=== PATIENT | female | born 1995 | race Caucasian/White ===

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

== ENCOUNTER 2017-01-27 19:04 | Outpatient (CLI) | payer OTHER ==
[2017-01-27 20:30] VITALS: BP 127/73; PULSE 110; RESP 16; TEMP 96.3
--- NOTE | 2017-04-06 08:44 | P.MSEPDOC ---
Presenting Problems - Arrival Data Date of Arrival on Unit: 01/27/17 Time of Arrival on Unit: 19:04 Mode of Transport: Ambulatory - Complaint OB-Reason for Admission/Chief Complaint: Pain Comment: Pt c/o back pain. Rating 7/10. Medical History - Information : 1 Para: 0 Term: 0 : 0 Abortions: Spontaneous or Elective: 0 Number of Living Children: 0 - Gestational Age Gestational Age by SUSAN (wks/days): 36 Weeks and 4 Days - History Complications: Smoker Comment: Pt reports smoking 1 every other day. Review of Systems - Review of Systems Constitutional: No problems Breast: No problems ENT: No problems Cardiovascular: No problems Respiratory: No problems Gastrointestinal: No problems Genitourinary: No problems Musculoskeletal: No problems Neurological: No problems Skin: No problems Vital Signs - Temperature Temperature: 96.3 F Temperature Source: Temporal Artery Scan - Pulse Right Pulse Rate: 110 Pulse Assessment Method: Pulse Oximetry - Respirations Respiratory Rate: 16 Oxygen Delivery Method: Room Air O2 Sat by Pulse Oximetry: 99 - Blood Pressure Right Arm Blood Pressure: 127/73 Blood Pressure Mean: 91 Blood Pressure Source: Automatic Cuff Medical Screen Scoring (Pre) - Cervical Exam Dilation: 1-3 cm = 1 Effacement: Exam Deferred Membranes: Intact - Uterine Contractions Frequency: N/A Duration: N/A Intensity: N/A - Maternal Vital Signs Maternal Temperature: N/A Maternal Blood Pressure: N/A Signs of Preeclampsia: N/A Maternal Respirations: N/A - Maternal Trauma Maternal Trauma: N/A - Assessment Baseline FHR: 135 Heart Rate - NICHD Category: Category I (Normal) = 0 NST: Reactive Position: N/A Station: N/A - Total Score Total Score (Pre): 1 - Level of Risk Level of Risk: Low (0-5) Physician Notification (Pre) - Physician Notified Physician Notified Date: 01/27/17 Physician Notified Time: 19:44 Physician/Practitioner Notifed:: Dr. Ackerman Spoke With: Dr. Ackerman New Order Received: Yes - Notification Comment Comment: Dr. Ackerman notified of pt of Dr. Lopez presenting with c/o back pain , rating 7/10. Cervical exam. NST-reactive. Pt denies complications with , no leaking or bleeding noted. VS stable. Orders to discharge pt home and to follow up with Dr. Lopez in office or [facility] if condition worsens. Disposition - Disposition OB Disposition: Discharge to home Discharge Date: 01/27/17 Discharge Time: 19:44 I agree with the RN Medical Screening Exam: Yes Risk & Benefit of care provided described in d/c instruction: Yes Diagnosis: FALSE LABOR BEFORE 37 COMPLETED WEEKS OF GEST, THIRD TRI
== END 2017-01-27 19:47 | disposition home or self-care (01) ==
LOC: FBPOP 19:04
PROVIDERS: ATTEND Obstetrics & Gynecology
DX: O47.03 False labor before 37 completed weeks of gestation, third trimester (principal); Z3A.36 36 weeks gestation of pregnancy
CPT/HCPCS: 59025; G0463; 99213

== ENCOUNTER → 2017-02-04 | Outpatient (CLI) | payer OTHER ==
--- NOTE | 2017-02-04 15:46 | US ---
EXAMINATION TYPE: US OB >= 14 wk fetus DATE OF EXAM: 02/04/2017 COMPARISON: 11/2016 CLINICAL HISTORY: Z34.90 Encounter for supervision of normal TECHNIQUE: Transabdominal (TA) GESTATIONAL AGE / DATING Physician Established: (37 weeks/4 days) EDC: 02/21/2017 Dates by LMP: (37 weeks/4 days) EDC: 02/21/2017 Dates by First Scan: (37 weeks/3 days) EDC: 02/20/2017 Dates by Current Scan: (36 weeks/1 days) EDC: 03/03/2017 SURVEY IUP: Single PLACENTA: Anterior PREVIA: No Previa GUILLERMO: 17.1 cm Normal CERVICAL LENGTH (transabdominal: norm > 3.0cm): 3.5 cm BIOMETRY PRESENTATION: Vertex LIE: Longitudinal BPD: 8.9 cm 36 weeks / 2 days HC: 32.1 cm 36 weeks / 1 days AC: 33 cm 36 weeks / 5days FL: 6.9 cm 35 weeks / 3 days ESTIMATED WEIGHT IN GRAMS: 2885 grams ESTIMATED WEIGHT IN LBS/OZS: 6 lbs. 6 oz. WEIGHT PERCENTAGE BASED ON ESTABLISHED DATES: 26 % HC/AC: 0.98 Normal FL/AC: 21 Normal HEART RATE: 153 bpm RHYTHM: Normal IMPRESSION: Single live intrauterine with a sonographic age of 36 weeks and 1 day and estimated date of delivery of 03/03/2017. Dates are concordant with the menstrual age.
== END | disposition home or self-care (01) ==
LOC: RADUSWWP 14:36
PROVIDERS: ATTEND Obstetrics & Gynecology
DX: Z34.90 Encounter for supervision of normal pregnancy, unspecified, unspecified trimester (principal); Z3A.36 36 weeks gestation of pregnancy
CPT/HCPCS: 76805

== ENCOUNTER 2018-02-20 19:52 | Emergency (ER) | payer OTHER ==
[2018-02-20 20:04] VITALS: RESP 18; TEMP 98.6
[2018-02-20] MEDS ORDERED: SODIUM CHLORIDE 0.9% 1,000 ML IV ONE (20:19)
[2018-02-20] MEDS ORDERED: SODIUM CHLORIDE 0.9% 500 ML IV ONE (20:19)
--- NOTE | 2018-02-20 20:30 | ED ---
General Adult HPI - General Source: patient, family, RN notes reviewed, old records reviewed Mode of arrival: ambulatory Limitations: no limitations <Collin Rodríguez - Last Filed: 02/20/18 20:59> <Tequila Reynoso - Last Filed: 02/21/18 00:23> <Macie Rubi - Last Filed: 02/21/18 00:50> - General Chief complaint: Vaginal Bleeding Stated complaint: 6 weeks , spotting - History of Present Illness Initial comments: Chief complaint history of present illness a 22-year-old female whose approximate 6 weeks . She found this out last week when she came emergency room because of lower abdominal discomfort and diagnosed urinary tract infection. At that time she had an ultrasound done which showed a single viable early intrauterine of 6 weeks 1 day, heart rate of 87 bpm , with a small amount of free fluid seen in the pelvis. On the same day her beta was 16,111 She continued to have discomfort in the lower abdomen during this past week. Today she had small clots passed per vagina. (Collin Rodríguez) - Related Data Previous Rx's Medication Instructions Recorded Cephalexin [Keflex] 500 mg PO Q12H 10 Days cap 02/15/18 Pnv No.95/Ferrous Fum/Folic AC 1 each PO DAILY #90 tablet 02/15/18 [ Multivitamin Tablet] Allergies Allergy/AdvReac Type Severity Reaction Status Date / Time strawberry AdvReac Itching Verified 02/20/18 20:04 Review of Systems ROS Other: All systems not noted in ROS Statement are negative. <Collin Rodríguez - Last Filed: 02/20/18 20:59> ROS Other: All systems not noted in ROS Statement are negative. <Tequila Reynoso - Last Filed: 02/21/18 00:23> ROS Other: All systems not noted in ROS Statement are negative. <Macie Rubi - Last Filed: 02/21/18 00:50> ROS Statement: Those systems with pertinent positive or pertinent negative responses have been documented in the HPI. Review of systems no headache or chest pain or shortness of breath. She has lower abdominal discomfort, cramping. She reports small blood clots per vagina. No nausea no vomiting no diarrhea. All systems are reviewed. Past medical problems none. Gynecological history, 2 para 1. Patient denies any surgeries. in the family. Patient has ALLERGIES to strawberries. She does smoke strongly encouraged to stop denies alcohol use. (Collin Rodríguez) Past Medical History Past Medical History: No Reported History History of Any Multi-Drug Resistant Organisms: None Reported Past Surgical History: No Surgical Hx Reported Past Psychological History: Anxiety Smoking Status: Current every day smoker Past Alcohol Use History: None Reported Past Drug Use History: None Reported <Collin Rodríguez - Last Filed: 02/20/18 20:59> General Exam Limitations: no limitations <MarcosCollin - Last Filed: 02/20/18 20:59> External exam: Present: normal external exam Speculum exam: Present: vaginal discharge (Thin light pink vaginal discharge), vaginal bleeding (Light vaginal bleeding), other (Cervix is erythematous, not friable, cervical os is closed) By manual exam: Present: cervical motion tenderness, adnexal tenderness <Tequila Reynoso - Last Filed: 02/21/18 00:23> <Macie Rubi - Last Filed: 02/21/18 00:50> - General Exam Comments Initial Comments: General: The patient is awake and alert, he with lower abdominal cramping. Small amount of vaginal bleeding she describes with small clots. Vital signs temperature 98.6 pulse 113 respiratory rate 18 pulse ox on percent room air blood pressure 115/56. Patient had an IV started receiving IV fluids at this time. Eye: Pupils are equal, round and reactive to light, extra-ocular movements are intact ; there is normal conjunctiva bilaterally. No signs of icterus. Ears, nose, mouth and throat: There are moist mucous membranes . Neck: The neck is supple, Cardiovascular: Tachycardic heart rate, 110. No murmur, rub or gallop is appreciated. Respiratory: Lungs are clear to auscultation, respirations are non-labored, breath sounds are equal. No wheezes, stridor, rales, or rhonchi. Gastrointestinal: Patient has lower abdominal discomfort, suprapubic discomfort. Describes small amount of vaginal bleeding describes it as small clots. Back: No back pain Musculoskeletal: Normal ROM, no tenderness, There is no pedal edema. There is no calf tenderness or swelling. Sensation intact. Pulses equal bilaterally 2+. Skin is warm and dry and no rashes or lesions are noted. Psychiatric: Cooperative, appropriate mood & affect, (Collin Rodríguez) Vital Signs 02/20/18 02/20/18 20:00 21:46 Temperature 98.6 F Pulse Rate 113 H 98 Respiratory 18 18 Rate Blood Pressure 115/56 155/52 O2 Sat by Pulse 100 100 Oximetry Medical Decision Making - Lab Data Result diagrams: 02/20/18 20:45 <Collin Rodríguez - Last Filed: 02/20/18 20:59> - Lab Data Result diagrams: 02/20/18 20:45 02/20/18 20:45 <Tequila Reynoso - Last Filed: 02/21/18 00:23> - Lab Data Result diagrams: 02/20/18 20:45 02/20/18 20:45 <Macie uRbi - Last Filed: 02/21/18 00:50> - Medical Decision Making Medical decision making; the 22-year-old female who is 2 para 1. The patient was seen last week in emergency room because of lower abdominal discomfort. Diagnoses urinary tract infection and placed on Keflex. At the same time the patient was diagnosed by urine to be positive for . All uterine ultrasound performed last week showed a viable intrauterine dated 6 weeks 1 day with heart tone of 87 small amount of free fluid. As read by Dr. Welch . The patient's beta at that time was over 16,000. Patient reports that on previous she was O- and needed RhoGAM. Patient describes lower abdominal discomfort and noticing some small blood clots. Physician's hospital aides and assistants teacher Tequila did a vaginal examination reports to me that there was significant discomfort with exam and movement of the cervix. Also pinkish vaginal discharge. Cultures were taken. GC and chlamydia results pending. Patient will have repeat ultrasound at this time due to increased abdominal pain and what she reported as blood clots at home. case discussed and endorsed to Dr Rubi. (Collin Rodríguez) Patient's US showed an IUP with good heart tones. It also showed a possible complex cyst in the right adnexa. Patient is did not do IVF or take hormones for this . She does have a history of twins on both sides of her family. Her beta-HCG is increasing appropriately. She had a scant amount of vaginal bleeding on her pelvic exam per the SCIENTIFIC ARTIST who did it and did have RLQ tenderness. Her OBGYN is Dr. Chris Lopez. I spoke with Dr. Hopkins who states the patient can be discharged to follow up with her OBGYN on Wednesday. A UA was not sent today but the patient is already being treated for a UTI. (Macie Rubi) - Lab Data Lab Results 02/20/18 02/20/18 02/20/18 Range/Units 20:40 20:45 20:45 WBC 11.8 H (4.0-11.0) k/uL RBC 4.55 (3.80-5.40) m/uL Hgb 13.2 (11.4-16.0) gm/dL Hct 38.7 (34.0-46.0) % MCV 85.0 (80.0-100.0) fL MCH 28.9 (25.0-35.0) pg MCHC 34.0 (31.0-37.0) g/dL RDW 13.3 (11.5-15.5) % Plt Count 260 (150-450) k/uL Neutrophils % 79 % Lymphocytes % 14 % Monocytes % 4 % Eosinophils % 1 % Basophils % 0 % Neutrophils # 9.3 H (1.3-7.7) k/uL Lymphocytes # 1.6 (1.0-4.8) k/uL Monocytes # 0.5 (0-1.0) k/uL Eosinophils # 0.1 (0-0.7) k/uL Basophils # 0.1 (0-0.2) k/uL Sodium 138 (137-145) mmol/L Potassium 3.4 L (3.5-5.1) mmol/L Chloride 101 (98-107) mmol/L Carbon Dioxide 24 (22-30) mmol/L Anion Gap 13 mmol/L BUN 11 (7-17) mg/dL Creatinine 0.57 (0.52-1.04) mg/dL Est GFR (CKD-EPI)AfAm >90 (>60 ml/min/1.73 sqM) Est GFR (CKD-EPI)NonAf >90 (>60 ml/min/1.73 sqM) Glucose 85 (74-99) mg/dL Calcium 9.2 (8.4-10.2) mg/dL HCG, Quant 54588.4 mIU/mL Blood Type O Negative Blood Type Recheck No Antibody Screen NEGATIVE Spec Expiration Date 02/23/2018 - 2348 Disposition <Collin Rodríguez - Last Filed: 02/20/18 20:59> <Tequila Reynoso - Last Filed: 02/21/18 00:23> Is patient prescribed a controlled substance at d/c from ED?: No <Macie Rubi - Last Filed: 02/21/18 00:50> Clinical Impression: Threatened in early , Ectopic of ovary, Cyst of ovary, right, Vaginal bleeding affecting early , Pelvic pain affecting Instructions: Ectopic (DC), Threatened Miscarriage (ED), First Trimester Vaginal Bleed (ED) Additional Instructions: Follow up with your OBGYN on Wednesday as scheduled. Return to ED if any worsening pain, passing out, light headedness, severe bleeding. Referrals: None,Stated [Primary Care Provider] - 1-2 days
[2018-02-20] MEDS ORDERED: Rhogam IMMUNE GLOBULIN 1,500 UNIT/1 ML IM ONE (20:38)
[2018-02-20 20:54] LABS: Basophils # (A) 0.1 k/uL (0-0.2); Basophils % (A) 0 %; Eosinophils # (A) 0.1 k/uL (0-0.7); Eosinophils % (A) 1 %; HCT 38.7 % (34.0-46.0); HGB 13.2 gm/dL (11.4-16.0); Lymphocytes # (A) 1.6 k/uL (1.0-4.8); Lymphocytes % (A) 14 %; MCH 28.9 pg (25.0-35.0); Mean Platelet Volume 7.4; Monocytes # (A) 0.5 k/uL (0-1.0); Monocytes % (A) 4 %; Neutrophils # (A) 9.3 k/uL (1.3-7.7); Neutrophils % (A) 79 %; Platelet Count 260 k/uL (150-450); RBC 4.55 m/uL (3.80-5.40); RDW 13.3 % (11.5-15.5); WBC 11.8 k/uL (4.0-11.0)
[2018-02-20 21:11] LABS: Anion Gap 13 mmol/L; Blood Urea Nitrogen 11 mg/dL (7-17); Calcium 9.2 mg/dL (8.4-10.2); Carbon Dioxide 24 mmol/L (22-30); Chloride 101 mmol/L (98-107); Glucose 85 mg/dL (74-99); Potassium 3.4 mmol/L (3.5-5.1); Sodium 138 mmol/L (137-145)
[2018-02-20 21:26] LABS: HCG,Quantitative Serum 37610.4 mIU/mL
[2018-02-20] MEDS ORDERED: ACETAMINOPHEN TAB 325 MG TAB PO STA (22:03)
--- NOTE | 2018-02-20 22:53 | US ---
EXAMINATION TYPE: Transabdominal DATE OF EXAM: 09/07/17 COMPARISON: CLINICAL HISTORY: Pain, possible vaginal bleeding. spotting, pain EXAM PERFORMED: Transvaginal (TV) and Transabdominal (TA) EXAM MEASUREMENTS: GESTATIONAL AGE / DATING Dates by First Scan: (6 weeks/6 days) EDC: 10/10/2018 Dates by Current Scan for: (6 weeks/3 days) EDC: 10/13/2018 MATERNAL ANATOMY Uterus: 8.7 x 6.2 x 5.0 cm Right Ovary: 3.8 x 2.2 x 2.5 cm, appears heterogenous Left Ovary: 4.9 x 3.3 x 3.2 cm Post CDS / Adnexa: Prominent area seen in right adnexa, nonperistalsing loops of bowel vs pelvic mass ? = 7.6 x 3.8 cm Presence of free fluid: seen in right adnexa Presence of corpus luteal cyst: left ovary = 2.3 x 1.4 x 1.7 cm Presence of subchorionic bleed: no GESTATION / SURVEY CRL: 0.6 cm (6 weeks/3 days) MSD: seen, not measured Yolk Sac (normal less than 6mm): 2.5 mm Heart Rate: 137 bpm Rhythm: Normal IUP: Viable IUP Date of LMP: 01/05/2018, Beta HcG (if available): 37,610 Single live IUP measuring 6 weeks 3 days. Prominent area seen in right adnexa. IMPRESSION: The ultrasound gestational age is 6 weeks and 3 days. There is a complex predominantly solid mass in the right adnexa that measures 7.5 x 3.8 cm of uncertain significance. This could be a hemorrhagic ov wendi cyst. There is minimal free fluid in the pelvis.
[2018-02-21 01:29] VITALS: BP 108/58; PULSE 71
== END 2018-02-21 01:27 | disposition home or self-care (01) ==
LOC: EC 19:52
DX: O20.0 Threatened abortion (principal); O34.81 Maternal care for other abnormalities of pelvic organs, first trimester; N83.201 Unspecified ovarian cyst, right side; Z67.41 Type O blood, Rh negative; O99.89 Other specified diseases and conditions complicating pregnancy, childbirth and the puerperium; R00.0 Tachycardia, unspecified; O99.331 Smoking (tobacco) complicating pregnancy, first trimester; F17.200 Nicotine dependence, unspecified, uncomplicated; Z91.018 Allergy to other foods; Z3A.01 Less than 8 weeks gestation of pregnancy
CPT/HCPCS: 36415; 86900; 86901; 80048; 85025; 86850; 84702; 87808; 87491; 87591; 76801; 76817; 99285; 96360; 96361 ×4; 90384; 96372; J2791

== ENCOUNTER 2018-03-04 07:59 | Emergency (ER) | payer OTHER ==
[2018-03-04 08:02] VITALS: RESP 18
[2018-03-04] MEDS ORDERED: SODIUM CHLORIDE 0.9% 1,000 ML IV STA (08:14)
[2018-03-04] MEDS ORDERED: METOCLOPRAMIDE 5 MG/ML 2 ML VIAL IVP STA (08:15)
[2018-03-04] MEDS ORDERED: diphenhydrAMINE 50 MG/ML 1 ML VIAL IVP STA (08:15)
[2018-03-04] MEDS ORDERED: ACETAMINOPHEN TAB 500 MG TAB PO STA (08:15)
--- NOTE | 2018-03-04 08:17 | ED ---
Abdominal Pain HPI - General Chief Complaint: Abdominal Pain Stated Complaint: Cramping, Time Seen by Provider: 03/04/18 08:04 Source: patient, RN notes reviewed, old records reviewed Mode of arrival: wheelchair Limitations: no limitations - History of Present Illness Initial Comments: Patient is a 22-year-old female presents emergency department today with chief complaint of abdominal cramping starting at 9 PM last night. She reports that he became intensively worse at midnight. Her [employer] HO[employer] BENDER is Dr. Lopez. She is approximately 8 weeks . Patient reports that she is treated for urinary tract infection. She seen in the emergency department one week ago and was diagnosed with a large right ovarian cyst. Patient states that she is follow-up with her [employer] B[employer]ER since this diagnosis. - Related Data Home Medications Medication Instructions Recorded Confirmed Pnv No.95/Ferrous Fum/Folic AC 1 tab PO DAILY 03/04/18 03/04/18 [ Multivitamin Tablet] Allergies Allergy/AdvReac Type Severity Reaction Status Date / Time strawberry AdvReac Itching Verified 03/04/18 08:32 Review of Systems ROS Statement: Those systems with pertinent positive or pertinent negative responses have been documented in the HPI. ROS Other: All systems not noted in ROS Statement are negative. Past Medical History Past Medical History: No Reported History History of Any Multi-Drug Resistant Organisms: None Reported Past Surgical History: No Surgical Hx Reported Past Psychological History: Anxiety Smoking Status: Current every day smoker Past Alcohol Use History: None Reported Past Drug Use History: None Reported General Exam - General Exam Comments Initial Comments: 22-year-old female. Alert and oriented. Mild to moderate discomfort. Limitations: no limitations General appearance: alert, in no apparent distress Head exam: Present: atraumatic, normocephalic, normal inspection Eye exam: Present: normal appearance, PERRL, EOMI. Absent: scleral icterus, conjunctival injection, periorbital swelling ENT exam: Present: normal exam Neck exam: Present: normal inspection. Absent: tenderness, meningismus, lymphadenopathy Respiratory exam: Present: normal lung sounds bilaterally. Absent: respiratory distress, wheezes, rales, rhonchi, stridor Cardiovascular Exam: Present: regular rate, normal rhythm, normal heart sounds. Absent: systolic murmur, diastolic murmur, rubs, gallop, clicks GI/Abdominal exam: Present: soft, tenderness (Suprapubic tenderness and right lower quadrant tenderness.), normal bowel sounds. Absent: distended, guarding, rebound, rigid Extremities exam: Present: normal inspection, full ROM, normal capillary refill. Absent: tenderness, pedal edema, joint swelling, calf tenderness Back exam: Present: normal inspection Neurological exam: Present: alert, oriented X3, CN II-XII intact Psychiatric exam: Present: normal affect, normal mood Course Vital Signs 03/04/18 07:59 Temperature 98.1 F Pulse Rate 97 Respiratory 18 Rate Blood Pressure 123/65 O2 Sat by Pulse 99 Oximetry Medical Decision Making - Medical Decision Making 22-year-old feel presents return should she went lower abdominal pain and cramping. She is 8 weeks . She does have a history of a large ovarian cyst right side. Status concern typically for ovarian torsion. Also blood work was obtained and normal. She had no tenderness on pelvic exam. No bleeding. Patient ultrasound that showed normal blood flow to the right ovary. There is a complex cyst measuring 5 cm by his is decreased from her previous ultrasound approximately 10 days ago. At this time Patient urinalysis the CV contaminated with multiple epithelial cells. Patient will have a urine culture obtained prior to starting and reactive she recently finished Keflex. I discussed with Patient that she needs follow-up with her T[employer] Dr. Lopez in regards to the abnormal ultrasound finding with a right cyst. Patient agrees to treatment plan. I discussed Tylenol for cramping and to return to the emergency department if any alarming signs or symptoms occur. Patient agrees to treatment plan will comply. - Lab Data Result diagrams: 03/04/18 08:23 03/04/18 08:23 Lab Results 03/04/18 03/04/18 03/04/18 Range/Units 08:04 08:23 08:23 WBC 10.0 (4.0-11.0) k/uL RBC 4.80 (3.80-5.40) m/uL Hgb 14.0 (11.4-16.0) gm/dL Hct 41.5 (34.0-46.0) % MCV 86.3 (80.0-100.0) fL MCH 29.2 (25.0-35.0) pg MCHC 33.9 (31.0-37.0) g/dL RDW 14.3 (11.5-15.5) % Plt Count 366 (150-450) k/uL Neutrophils % 83 % Lymphocytes % 12 % Monocytes % 3 % Eosinophils % 1 % Basophils % 0 % Neutrophils # 8.4 H (1.3-7.7) k/uL Lymphocytes # 1.2 (1.0-4.8) k/uL Monocytes # 0.3 (0-1.0) k/uL Eosinophils # 0.1 (0-0.7) k/uL Basophils # 0.0 (0-0.2) k/uL Sodium (137-145) mmol/L Potassium (3.5-5.1) mmol/L Chloride (98-107) mmol/L Carbon Dioxide (22-30) mmol/L Anion Gap mmol/L BUN (7-17) mg/dL Creatinine (0.52-1.04) mg/dL Est GFR (CKD-EPI)AfAm (>60 ml/min/1.73 sqM) Est GFR (CKD-EPI)NonAf (>60 ml/min/1.73 sqM) Glucose (74-99) mg/dL Calcium (8.4-10.2) mg/dL Total Bilirubin (0.2-1.3) mg/dL AST (14-36) U/L ALT (9-52) U/L Alkaline Phosphatase (38-126) U/L Total Protein (6.3-8.2) g/dL Albumin (3.5-5.0) g/dL HCG, Quant mIU/mL Urine Color Yellow Urine Appearance Cloudy H (Clear) Urine pH 6.0 (5.0-8.0) Ur Specific [place] 1.031 (1.001-1.035) Urine Protein 1+ H (Negative) Urine Glucose (UA) Negative (Negative) Urine Ketones 4+ H (Negative) Urine Blood Negative (Negative) Urine Nitrite Negative (Negative) Urine Bilirubin Negative (Negative) Urine Urobilinogen <2.0 (<2.0) mg/dL Ur Leukocyte Esterase Negative (Negative) Urine RBC 6 H (0-5) /hpf Urine WBC 10 H (0-5) /hpf Ur Squamous Epith Cells 32 H (0-4) /hpf Urine Bacteria Rare H (None) /hpf Urine Mucus Many H (None) /hpf Trichomonas Ag (Rapid) (Negative) Blood Type O Negative Blood Type Recheck No 03/04/18 03/04/18 Range/Units 08:23 08:56 WBC (4.0-11.0) k/uL RBC (3.80-5.40) m/uL Hgb (11.4-16.0) gm/dL Hct (34.0-46.0) % MCV (80.0-100.0) fL MCH (25.0-35.0) pg MCHC (31.0-37.0) g/dL RDW (11.5-15.5) % Plt Count (150-450) k/uL Neutrophils % % Lymphocytes % % Monocytes % % Eosinophils % % Basophils % % Neutrophils # (1.3-7.7) k/uL Lymphocytes # (1.0-4.8) k/uL Monocytes # (0-1.0) k/uL Eosinophils # (0-0.7) k/uL Basophils # (0-0.2) k/uL Sodium 138 (137-145) mmol/L Potassium 4.3 (3.5-5.1) mmol/L Chloride 104 (98-107) mmol/L Carbon Dioxide 22 (22-30) mmol/L Anion Gap 12 mmol/L BUN 13 (7-17) mg/dL Creatinine 0.55 (0.52-1.04) mg/dL Est GFR (CKD-EPI)AfAm >90 (>60 ml/min/1.73 sqM) Est GFR (CKD-EPI)NonAf >90 (>60 ml/min/1.73 sqM) Glucose 91 (74-99) mg/dL Calcium 10.3 H (8.4-10.2) mg/dL Total Bilirubin 0.7 (0.2-1.3) mg/dL AST 19 (14-36) U/L ALT 17 (9-52) U/L Alkaline Phosphatase 67 (38-126) U/L Total Protein 7.8 (6.3-8.2) g/dL Albumin 4.6 (3.5-5.0) g/dL HCG, Quant 775678.0 mIU/mL Urine Color Urine Appearance (Clear) Urine pH (5.0-8.0) Ur Specific [place] (1.001-1.035) Urine Protein (Negative) Urine Glucose (UA) (Negative) Urine Ketones (Negative) Urine Blood (Negative) Urine Nitrite (Negative) Urine Bilirubin (Negative) Urine Urobilinogen (<2.0) mg/dL Ur Leukocyte Esterase (Negative) Urine RBC (0-5) /hpf Urine WBC (0-5) /hpf Ur Squamous Epith Cells (0-4) /hpf Urine Bacteria (None) /hpf Urine Mucus (None) /hpf Trichomonas Ag (Rapid) Negative (Negative) Blood Type Blood Type Recheck - Radiology Data Radiology results: report reviewed Single intrauterine gestation estimated date of 8 weeks and 2 days. Cardiac activity is 165. Substance subchorionic hemorrhage may be adjacent. There is a right ovary is accomplished appearance of a hypoechoic denies focal structures. Simple cyst is not evident. Short-term monitoring is recommended. Arterial blood flow seen on the right ovary. Disposition Clinical Impression: Nausea & vomiting, Cyst of ovary, right, Abdominal pain affecting Disposition: HOME SELF-CARE Condition: Good Instructions: Abdominal Pain in (ED) Additional Instructions: Patient advised to follow-up with your [employer]ER in regards to her abnormal cyst finding. Return to emergency department if any alarming signs symptoms occur. Tylenol for pain. Is patient prescribed a controlled substance at d/c from ED?: No Referrals: None,Stated [Primary Care Provider] - 1-2 days Chris Lopez DO [REFERRING] - 1-2 days Time of Disposition: 11:22
[2018-03-04 09:00] LABS: Basophils % (A) 0 %; Eosinophils # (A) 0.1 k/uL (0-0.7); Eosinophils % (A) 1 %; HCT 41.5 % (34.0-46.0); Lymphocytes # (A) 1.2 k/uL (1.0-4.8); Lymphocytes % (A) 12 %; MCH 29.2 pg (25.0-35.0); MCHC 33.9 g/dL (31.0-37.0); MCV 86.3 fL (80.0-100.0); Monocytes # (A) 0.3 k/uL (0-1.0); Monocytes % (A) 3 %; Neutrophils # (A) 8.4 k/uL (1.3-7.7); Neutrophils % (A) 83 %; Platelet Count 366 k/uL (150-450); RDW 14.3 % (11.5-15.5)
[2018-03-04 09:14] LABS: Appearance,Urine Cloudy (Clear); Bacteria,Urine Rare /hpf; Bilirubin,Urine Negative (Negative); Blood,Urine Negative (Negative); Color,Urine Yellow; Glucose,Urine (UA) Negative (Negative); Ketones,Urine 4+ (Negative); Leukocyte Esterase,Urine Negative (Negative); Mucus,Urine Many /hpf; Nitrite,Urine Negative (Negative); Protein,Urine 1+ (Negative); RBC,Urine 6 /hpf (0-5); Specific Gravity,Urine 1.031 (1.001-1.035); Squamous Epithelial Cell,Urine 32 /hpf (0-4); Urobilinogen,Urine <2.0 mg/dL (<2.0); WBC,Urine 10 /hpf (0-5)
[2018-03-04 09:15] LABS: ALT 17 U/L (9-52); AST 19 U/L (14-36); Albumin 4.6 g/dL (3.5-5.0); Alkaline Phosphatase 67 U/L (38-126); Anion Gap 12 mmol/L; Blood Urea Nitrogen 13 mg/dL (7-17); Calcium 10.3 mg/dL (8.4-10.2); Carbon Dioxide 22 mmol/L (22-30); Chloride 104 mmol/L (98-107); Glucose 91 mg/dL (74-99); Potassium 4.3 mmol/L (3.5-5.1); Sodium 138 mmol/L (137-145); Total Bilirubin 0.7 mg/dL (0.2-1.3); Total Protein 7.8 g/dL (6.3-8.2)
--- NOTE | 2018-03-04 11:01 | US ---
EXAMINATION TYPE: Transabdominal DATE OF EXAM: 09/07/17 COMPARISON: US 2017 CLINICAL HISTORY: Pain. Abdomen and pelvic pain x 2 days, 2, para 1 EXAM PERFORMED: Transvaginal (TV) and Transabdominal (TA) EXAM MEASUREMENTS: GESTATIONAL AGE / DATING Physician Established: Not established yet Dates by LMP: (8 weeks/2 days) EDC: Dates by First Scan: (8 weeks/4 days) EDC: 10/10/2018 Dates by Current Scan for: (8 weeks/2 days) EDC: 10/12/2018 MATERNAL ANATOMY Uterus: 9.6 x 5.3 x 7.4cm, anteverted Right Ovary: 2.2 x 1.5 x 1.6cm possible right ovary seen, arterial flow seen, unable to obtain venous flow Left Ovary: 3.9 x 2.0 x 1.8cm, good arterial and venous flow seen within ovary Right Adnexa: 4.7 x 2.7 x 4.1cm complex area within right adnexa Presence of free fluid: yes Presence of corpus luteal cyst: left ovary: 2.0 x 1.4 x 1.6cm hypoechoic area, probable corpus luteum Presence of subchorionic bleed: 1.9 x 0.9 x 0.9cm complex area seen adjacent to gestational sac, prob able subchorionic bleed GESTATION / SURVEY CRL: 1.8cm (8 weeks/2 days) Yolk Sac (normal less than 6mm): 3.6mm Heart Rate: 165 bpm Rhythm: Normal IUP: Viable IUP Date of LMP: 01/05/18 Beta HcG (if available): Not available at time of exam. Viable single IUP measuring 8 weeks 2 days with a heart rate of 165bpm and an estimated delivery date of 10/12/2018, 4.7 x 2.7 x 4.1cm complex area within right adnexa. Simple cyst is not evident. This complex structure should be followed with ultrasound. IMPRESSION: 1. Single intrauterine gestation estimated date 8 weeks 2 days gestation. Cardiac activity measures 1 65 bpm. 2. Small subchorionic hemorrhage may be adjacent. 3. Right ovary has a complex appearance with hypoechoic and isoechoic structures. Simple cyst is not evident. Short-term monitoring is recommended.
[2018-03-04 11:33] VITALS: BP 108/55; PULSE 78; TEMP 98.4
== END 2018-03-04 11:34 | disposition home or self-care (01) ==
LOC: EC 07:59
DX: O26.891 Other specified pregnancy related conditions, first trimester (principal); N83.201 Unspecified ovarian cyst, right side; O21.9 Vomiting of pregnancy, unspecified; O99.331 Smoking (tobacco) complicating pregnancy, first trimester; F17.200 Nicotine dependence, unspecified, uncomplicated; Z91.018 Allergy to other foods; Z3A.08 8 weeks gestation of pregnancy
CPT/HCPCS: 36415; 76801; 76817; 80053; 81001; 84702; 85025; 86900; 86901; 87070; 87086; 87205; 87491; 87591; 87808; 93976; 96361; 96374; 96375; 99285

== ENCOUNTER 2018-03-20 15:36 | Emergency (ER) | payer OTHER ==
[2018-03-20] MEDS ORDERED: SODIUM CHLORIDE 0.9% 2,000 ML IV STA (16:16)
[2018-03-20] MEDS ORDERED: diphenhydrAMINE 50 MG/ML 1 ML VIAL IVP STA (16:16)
[2018-03-20] MEDS ORDERED: METOCLOPRAMIDE 5 MG/ML 2 ML VIAL IVP STA (16:16)
--- NOTE | 2018-03-20 16:21 | ED ---
Nausea/Vomiting/Diarrhea HPI - General Chief complaint: Nausea/Vomiting/Diarrhea Stated complaint: 10 weeks & vomiting Time Seen by Provider: 03/20/18 15:59 Source: patient Mode of arrival: ambulatory Limitations: no limitations - History of Present Illness Initial comments: Patient is a female presenting for nausea and vomiting. Patient states that she is approximately 10 weeks 5 days and that for the last 2 days , she has been having nausea and vomiting. She also admits to diffuse abdominal cramping but no vaginal bleeding. She had one episode of diarrhea today with chills but no fevers. She also denies any urinary symptoms such as dysuria and states that she has been on amoxicillin for approximately 10 days for a urinary tract infection. - Related Data Home Medications Medication Instructions Recorded Confirmed Pnv No.95/Ferrous Fum/Folic AC 1 tab PO DAILY 03/04/18 03/20/18 [ Multivitamin Tablet] Acetaminophen Tab [Tylenol Tab] 325 mg PO Q6H 03/20/18 03/20/18 Cephalexin [Keflex] 500 mg PO Q12HR 03/20/18 03/20/18 Previous Rx's Medication Instructions Recorded Prochlorperazine [Compazine] 10 mg PO Q8H #14 tab 03/20/18 Allergies Allergy/AdvReac Type Severity Reaction Status Date / Time strawberry AdvReac Itching Verified 03/20/18 16:53 Review of Systems ROS Statement: Those systems with pertinent positive or pertinent negative responses have been documented in the HPI. Constitutional: Negative for chills, fatigue and fever. HENT: Negative for congestion. Respiratory: Negative for chest tightness, shortness of breath and wheezing. Negative for cough Cardiovascular: Negative for chest pain and palpitations. Gastrointestinal: Positive for abdominal pain. Positive for diarrhea, nausea and vomiting. Genitourinary: Negative for dysuria. Negative for vaginal bleeding Musculoskeletal: Negative for back pain, neck pain and neck stiffness. Skin: Negative for color change. Neurological: Negative for dizziness, speech difficulty, weakness and light- headedness. Psychiatric/Behavioral: Negative for agitation and confusion. Negative for anxiety ROS Other: All systems not noted in ROS Statement are negative. Past Medical History Past Medical History: No Reported History History of Any Multi-Drug Resistant Organisms: None Reported Past Surgical History: No Surgical Hx Reported Past Psychological History: Anxiety Smoking Status: Current every day smoker Past Alcohol Use History: None Reported Past Drug Use History: None Reported General Exam - General Exam Comments Initial Comments: Constitutional: Pt is oriented to person, place, and time. Pt appears well- developed and well-nourished. No distress. HENT: Head: Normocephalic and atraumatic. Eyes: EOM are normal. Neck: Normal range of motion. Neck supple. Cardiovascular: Tachycardia present, regular rhythm, S1 normal, S2 normal and normal heart sounds. Exam reveals no gallop and no friction rub. No murmur heard. Pulmonary/Chest: Effort normal and breath sounds normal. No tachypnea and no bradypnea. No respiratory distress. No wheezes or rales noted. Abdominal: Soft. Bowel sounds are normal. Pt exhibits no shifting dullness, no distension, no pulsatile liver, no fluid wave, no abdominal bruit and no ascites. There is no tenderness. There is no rigidity, no rebound, no guarding, no tenderness at McBurney's point and negative Ortiz's sign. Musculoskeletal: Normal range of motion. Neurological: Pt is alert and oriented to person, place, and time. No cranial nerve deficit. Skin: Skin is warm and dry. No rash noted. Pt is not diaphoretic. No erythema. No pallor. Psychiatric: Pt has a normal mood and affect. Pt behavior is normal. Thought content normal. Limitations: no limitations Course Vital Signs 03/20/18 03/20/18 15:49 19:00 Temperature 98.1 F 98.9 F Pulse Rate 137 H 99 Respiratory 16 18 Rate Blood Pressure 111/72 122/76 O2 Sat by Pulse 98 97 Oximetry Medical Decision Making - Medical Decision Making Laboratory studies showed that there was no significant leukocytosis and hemoglobin was stable at 14.8. There was evidence of dehydration as there was ketones in the urine. Additionally, the urine appears to be contaminated as there is many squamous epithelial cells. Nonetheless, patient is currently being treated with antibiotics for UTI. Patient was given 2 L of fluids as well as multiple anti-medics and symptoms did improve. heart tones were also obtained and showed heart rate of approximately 180. Explained all labs and diagnostic test results and that we will discharge the patient home and patient is to follow up with OB in 1-2 days and return to the ED if symptoms worsen. Pt is agreeable to plan. - Lab Data Result diagrams: 03/20/18 16:41 03/20/18 16:41 Lab Results 03/20/18 03/20/18 03/20/18 Range/Units 16:41 16:41 16:41 WBC 10.3 (4.0-11.0) k/uL RBC 4.98 (3.80-5.40) m/uL Hgb 14.8 (11.4-16.0) gm/dL Hct 42.6 (34.0-46.0) % MCV 85.4 (80.0-100.0) fL MCH 29.7 (25.0-35.0) pg MCHC 34.7 (31.0-37.0) g/dL RDW 14.5 (11.5-15.5) % Plt Count 328 (150-450) k/uL Neutrophils % 87 % Lymphocytes % 10 % Monocytes % 2 % Eosinophils % 1 % Basophils % 0 % Neutrophils # 8.9 H (1.3-7.7) k/uL Lymphocytes # 1.1 (1.0-4.8) k/uL Monocytes # 0.2 (0-1.0) k/uL Eosinophils # 0.1 (0-0.7) k/uL Basophils # 0.0 (0-0.2) k/uL Sodium 140 (137-145) mmol/L Potassium 4.4 (3.5-5.1) mmol/L Chloride 101 (98-107) mmol/L Carbon Dioxide 24 (22-30) mmol/L Anion Gap 15 mmol/L BUN 14 (7-17) mg/dL Creatinine 0.53 (0.52-1.04) mg/dL Est GFR (CKD-EPI)AfAm >90 (>60 ml/min/1.73 sqM) Est GFR (CKD-EPI)NonAf >90 (>60 ml/min/1.73 sqM) Glucose 102 H (74-99) mg/dL Calcium 10.4 H (8.4-10.2) mg/dL Total Bilirubin 0.6 (0.2-1.3) mg/dL AST 19 (14-36) U/L ALT 10 (9-52) U/L Alkaline Phosphatase 63 (38-126) U/L Total Protein 8.2 (6.3-8.2) g/dL Albumin 4.7 (3.5-5.0) g/dL Lipase 69 (23-300) U/L Urine Color Yellow Urine Appearance Cloudy H (Clear) Urine pH 6.0 (5.0-8.0) Ur Specific [place] 1.033 (1.001-1.035) Urine Protein 2+ H (Negative) Urine Glucose (UA) Negative (Negative) Urine Ketones 4+ H (Negative) Urine Blood Negative (Negative) Urine Nitrite Negative (Negative) Urine Bilirubin Negative (Negative) Urine Urobilinogen 2.0 (<2.0) mg/dL Ur Leukocyte Esterase Moderate H (Negative) Urine RBC 15 H (0-5) /hpf Urine WBC 20 H (0-5) /hpf Ur Squamous Epith Cells 41 H (0-4) /hpf Urine Mucus Many H (None) /hpf Disposition Clinical Impression: Nausea and vomiting in Disposition: HOME SELF-CARE Condition: Good Instructions: Acute Nausea and Vomiting (ED) Prescriptions: Prochlorperazine [Compazine] 10 mg PO Q8H #14 tab Is patient prescribed a controlled substance at d/c from ED?: No Referrals: None,Stated [Primary Care Provider] - 1-2 days Krunal Ackerman DO [Doctor of Osteopathic Medicine] - 1-2 days Time of Disposition: 18:41
[2018-03-20 17:00] LABS: Appearance,Urine Cloudy (Clear); Basophils % (A) 0 %; Bilirubin,Urine Negative (Negative); Blood,Urine Negative (Negative); Color,Urine Yellow; Eosinophils # (A) 0.1 k/uL (0-0.7); Eosinophils % (A) 1 %; Glucose,Urine (UA) Negative (Negative); HCT 42.6 % (34.0-46.0); HGB 14.8 gm/dL (11.4-16.0); Ketones,Urine 4+ (Negative); Leukocyte Esterase,Urine Moderate (Negative); Lymphocytes # (A) 1.1 k/uL (1.0-4.8); Lymphocytes % (A) 10 %; MCH 29.7 pg (25.0-35.0); MCHC 34.7 g/dL (31.0-37.0); MCV 85.4 fL (80.0-100.0); Mean Platelet Volume 7.3; Monocytes # (A) 0.2 k/uL (0-1.0); Monocytes % (A) 2 %; Mucus,Urine Many /hpf; Neutrophils # (A) 8.9 k/uL (1.3-7.7); Neutrophils % (A) 87 %; Nitrite,Urine Negative (Negative); Platelet Count 328 k/uL (150-450); Protein,Urine 2+ (Negative); RBC 4.98 m/uL (3.80-5.40); RBC,Urine 15 /hpf (0-5); RDW 14.5 % (11.5-15.5); Specific Gravity,Urine 1.033 (1.001-1.035); Squamous Epithelial Cell,Urine 41 /hpf (0-4); WBC 10.3 k/uL (4.0-11.0); WBC,Urine 20 /hpf (0-5)
[2018-03-20 17:08] LABS: ALT 10 U/L (9-52); AST 19 U/L (14-36); Albumin 4.7 g/dL (3.5-5.0); Alkaline Phosphatase 63 U/L (38-126); Anion Gap 15 mmol/L; Blood Urea Nitrogen 14 mg/dL (7-17); Calcium 10.4 mg/dL (8.4-10.2); Carbon Dioxide 24 mmol/L (22-30); Chloride 101 mmol/L (98-107); Glucose 102 mg/dL (74-99); Lipase 69 U/L (23-300); Potassium 4.4 mmol/L (3.5-5.1); Sodium 140 mmol/L (137-145); Total Bilirubin 0.6 mg/dL (0.2-1.3); Total Protein 8.2 g/dL (6.3-8.2)
[2018-03-20 19:19] VITALS: BP 122/76; PULSE 99; RESP 18; TEMP 98.9
== END 2018-03-20 19:00 | disposition home or self-care (01) ==
LOC: EC 15:36
DX: O21.9 Vomiting of pregnancy, unspecified (principal); O26.891 Other specified pregnancy related conditions, first trimester; R10.84 Generalized abdominal pain; O99.281 Endocrine, nutritional and metabolic diseases complicating pregnancy, first trimester; E86.0 Dehydration; O99.331 Smoking (tobacco) complicating pregnancy, first trimester; F17.200 Nicotine dependence, unspecified, uncomplicated; Z3A.10 10 weeks gestation of pregnancy; Z79.899 Other long term (current) drug therapy; Z91.018 Allergy to other foods
CPT/HCPCS: 36415; 80053; 83690; 85025; 81001; 99284; 96374; 96375; 96361 ×2; J1200; J2765

== ENCOUNTER 2018-04-02 17:08 | Emergency (ER) | payer OTHER ==
[2018-04-02 17:18] VITALS: RESP 18; TEMP 98.2
[2018-04-02] MEDS ORDERED: ACETAMINOPHEN TAB 325 MG TAB PO STA (17:32)
[2018-04-02] MEDS ORDERED: SODIUM CHLORIDE 0.9% 1,000 ML IV ONE (17:32)
--- NOTE | 2018-04-02 17:34 | ED ---
Female Urogenital HPI - General Chief complaint: Vaginal Bleeding Stated complaint: 12 weeks /bleeding Time Seen by Provider: 04/02/18 17:20 Source: patient Mode of arrival: ambulatory Limitations: no limitations - History of Present Illness Initial comments: Patient is a 22-year-old female is approximately 12 weeks and presents for vaginal bleeding. She states at 2030 minutes ago, she started having bright red bleeding from her vagina. She admits to some intermittent cramping but no nausea/vomiting/diarrhea, fever/chills, dysuria and states that when she went to wipe, it was more pink in color. She is also unable to estimate how much blood there was. - Related Data Home Medications Medication Instructions Recorded Confirmed Pnv No.95/Ferrous Fum/Folic AC 1 tab PO DAILY 03/04/18 03/20/18 [ Multivitamin Tablet] Acetaminophen Tab [Tylenol Tab] 325 mg PO Q6H 03/20/18 03/20/18 Cephalexin [Keflex] 500 mg PO Q12HR 03/20/18 03/20/18 Previous Rx's Medication Instructions Recorded Prochlorperazine [Compazine] 10 mg PO Q8H #14 tab 03/20/18 Allergies Allergy/AdvReac Type Severity Reaction Status Date / Time strawberry AdvReac Itching Verified 04/02/18 17:15 Review of Systems ROS Statement: Those systems with pertinent positive or pertinent negative responses have been documented in the HPI. Constitutional: Negative for chills, fatigue and fever. HENT: Negative for congestion. Respiratory: Negative for chest tightness, shortness of breath and wheezing. Negative for cough Cardiovascular: Negative for chest pain and palpitations. Gastrointestinal: Negative for abdominal pain. Negative for abdominal distention , diarrhea, nausea and vomiting. Genitourinary: Negative for dysuria. Positive for vaginal bleeding Musculoskeletal: Negative for back pain, neck pain and neck stiffness. Skin: Negative for color change. Neurological: Negative for dizziness, speech difficulty, weakness and light- headedness. Psychiatric/Behavioral: Negative for agitation and confusion. Negative for anxiety ROS Other: All systems not noted in ROS Statement are negative. Past Medical History Past Medical History: No Reported History History of Any Multi-Drug Resistant Organisms: None Reported Past Surgical History: No Surgical Hx Reported Past Psychological History: Anxiety Smoking Status: Current some day smoker Past Alcohol Use History: None Reported Past Drug Use History: None Reported General Exam - General Exam Comments Initial Comments: Constitutional: Pt is oriented to person, place, and time. Pt appears well- developed and well-nourished. No distress. HENT: Head: Normocephalic and atraumatic. Eyes: EOM are normal. Neck: Normal range of motion. Neck supple. Cardiovascular: Normal rate, regular rhythm, S1 normal, S2 normal and normal heart sounds. Exam reveals no gallop and no friction rub. No murmur heard. Pulmonary/Chest: Effort normal and breath sounds normal. No tachypnea and no bradypnea. No respiratory distress. No wheezes or rales noted. Abdominal: Soft. Bowel sounds are normal. Pt exhibits no shifting dullness, no distension, no pulsatile liver, no fluid wave, no abdominal bruit and no ascites. There is no tenderness. There is no rigidity, no rebound, no guarding, no tenderness at McBurney's point and negative Ortiz's sign. Musculoskeletal: Normal range of motion. Neurological: Pt is alert and oriented to person, place, and time. No cranial nerve deficit. Skin: Skin is warm and dry. No rash noted. Pt is not diaphoretic. No erythema. No pallor. Psychiatric: Pt has a normal mood and affect. Pt behavior is normal. Thought content normal. Limitations: no limitations Course Vital Signs 04/02/18 04/02/18 17:15 18:24 Temperature 98.2 F Pulse Rate 118 H 77 Respiratory 18 18 Rate Blood Pressure 107/57 103/62 O2 Sat by Pulse 96 98 Oximetry Medical Decision Making - Medical Decision Making Laboratory studies showed that hemoglobin was stable at 12.6 and electrolytes were normal limits. Patient was not tachycardic on evaluation and there is no significant abdominal tenderness, and therefore transvaginal ultrasound was performed. Nonetheless, heart tones were obtained and set up technician stated that heart rate was greater than 160 and consistent. Patient was advised to follow-up with obstetrics on an outpatient basis and/or return to the emergency department if the symptoms worsen. Patient was agreeable to plan. Patient was ordered program but blood bank called and stated that she had received program recently within the last month. - Lab Data Result diagrams: 04/02/18 17:50 04/02/18 17:50 Lab Results 04/02/18 04/02/18 04/02/18 Range/Units 17:50 17:50 17:50 WBC 6.8 (4.0-11.0) k/uL RBC 4.19 (3.80-5.40) m/uL Hgb 12.6 (11.4-16.0) gm/dL Hct 36.6 (34.0-46.0) % MCV 87.4 (80.0-100.0) fL MCH 30.1 (25.0-35.0) pg MCHC 34.4 (31.0-37.0) g/dL RDW 14.8 (11.5-15.5) % Plt Count 252 (150-450) k/uL Neutrophils % 62 % Lymphocytes % 32 % Monocytes % 4 % Eosinophils % 2 % Basophils % 0 % Neutrophils # 4.2 (1.3-7.7) k/uL Lymphocytes # 2.1 (1.0-4.8) k/uL Monocytes # 0.3 (0-1.0) k/uL Eosinophils # 0.1 (0-0.7) k/uL Basophils # 0.0 (0-0.2) k/uL PT (9.0-12.0) sec INR (<1.2) APTT (22.0-30.0) sec Sodium 135 L (137-145) mmol/L Potassium 4.0 (3.5-5.1) mmol/L Chloride 104 (98-107) mmol/L Carbon Dioxide 24 (22-30) mmol/L Anion Gap 7 mmol/L BUN 9 (7-17) mg/dL Creatinine 0.42 L (0.52-1.04) mg/dL Est GFR (CKD-EPI)AfAm >90 (>60 ml/min/1.73 sqM) Est GFR (CKD-EPI)NonAf >90 (>60 ml/min/1.73 sqM) Glucose 82 (74-99) mg/dL Calcium 9.7 (8.4-10.2) mg/dL Total Bilirubin 0.3 (0.2-1.3) mg/dL AST 17 (14-36) U/L ALT 14 (9-52) U/L Alkaline Phosphatase 40 (38-126) U/L Total Protein 7.1 (6.3-8.2) g/dL Albumin 4.1 (3.5-5.0) g/dL Urine Color Yellow Urine Appearance Cloudy H (Clear) Urine pH 6.5 (5.0-8.0) Ur Specific [place] 1.014 (1.001-1.035) Urine Protein Trace H (Negative) Urine Glucose (UA) Negative (Negative) Urine Ketones Negative (Negative) Urine Blood Large H (Negative) Urine Nitrite Negative (Negative) Urine Bilirubin Negative (Negative) Urine Urobilinogen <2.0 (<2.0) mg/dL Ur Leukocyte Esterase Small H (Negative) Urine RBC 1 (0-5) /hpf Urine WBC 7 H (0-5) /hpf Ur Squamous Epith Cells 13 H (0-4) /hpf Amorphous Sediment Rare H (None) /hpf Urine Bacteria Rare H (None) /hpf Urine Mucus Few H (None) /hpf Blood Type Blood Type Recheck Antibody Screen Direct Antiglob Test Spec Expiration Date 04/02/18 04/02/18 Range/Units 17:50 17:50 WBC (4.0-11.0) k/uL RBC (3.80-5.40) m/uL Hgb (11.4-16.0) gm/dL Hct (34.0-46.0) % MCV (80.0-100.0) fL MCH (25.0-35.0) pg MCHC (31.0-37.0) g/dL RDW (11.5-15.5) % Plt Count (150-450) k/uL Neutrophils % % Lymphocytes % % Monocytes % % Eosinophils % % Basophils % % Neutrophils # (1.3-7.7) k/uL Lymphocytes # (1.0-4.8) k/uL Monocytes # (0-1.0) k/uL Eosinophils # (0-0.7) k/uL Basophils # (0-0.2) k/uL PT 9.5 (9.0-12.0) sec INR 1.0 (<1.2) APTT 24.6 (22.0-30.0) sec Sodium (137-145) mmol/L Potassium (3.5-5.1) mmol/L Chloride (98-107) mmol/L Carbon Dioxide (22-30) mmol/L Anion Gap mmol/L BUN (7-17) mg/dL Creatinine (0.52-1.04) mg/dL Est GFR (CKD-EPI)AfAm (>60 ml/min/1.73 sqM) Est GFR (CKD-EPI)NonAf (>60 ml/min/1.73 sqM) Glucose (74-99) mg/dL Calcium (8.4-10.2) mg/dL Total Bilirubin (0.2-1.3) mg/dL AST (14-36) U/L ALT (9-52) U/L Alkaline Phosphatase (38-126) U/L Total Protein (6.3-8.2) g/dL Albumin (3.5-5.0) g/dL Urine Color Urine Appearance (Clear) Urine pH (5.0-8.0) Ur Specific [place] (1.001-1.035) Urine Protein (Negative) Urine Glucose (UA) (Negative) Urine Ketones (Negative) Urine Blood (Negative) Urine Nitrite (Negative) Urine Bilirubin (Negative) Urine Urobilinogen (<2.0) mg/dL Ur Leukocyte Esterase (Negative) Urine RBC (0-5) /hpf Urine WBC (0-5) /hpf Ur Squamous Epith Cells (0-4) /hpf Amorphous Sediment (None) /hpf Urine Bacteria (None) /hpf Urine Mucus (None) /hpf Blood Type O Negative Blood Type Recheck No Antibody Screen POSITIVE Direct Antiglob Test Negative Spec Expiration Date 04/05/20182349 Disposition Clinical Impression: Threatened Disposition: HOME SELF-CARE Condition: Good Instructions: Threatened Miscarriage (ED) Is patient prescribed a controlled substance at d/c from ED?: No Referrals: None,Stated [Primary Care Provider] - 1-2 days Chris Lopez DO [REFERRING] - 1-2 days Time of Disposition: 19:10
[2018-04-02 18:10] LABS: Basophils % (A) 0 %; Eosinophils # (A) 0.1 k/uL (0-0.7); Eosinophils % (A) 2 %; HCT 36.6 % (34.0-46.0); HGB 12.6 gm/dL (11.4-16.0); Lymphocytes # (A) 2.1 k/uL (1.0-4.8); Lymphocytes % (A) 32 %; MCH 30.1 pg (25.0-35.0); MCHC 34.4 g/dL (31.0-37.0); MCV 87.4 fL (80.0-100.0); Mean Platelet Volume 7.1; Monocytes # (A) 0.3 k/uL (0-1.0); Monocytes % (A) 4 %; Neutrophils # (A) 4.2 k/uL (1.3-7.7); Neutrophils % (A) 62 %; Platelet Count 252 k/uL (150-450); RBC 4.19 m/uL (3.80-5.40); RDW 14.8 % (11.5-15.5); WBC 6.8 k/uL (4.0-11.0)
[2018-04-02 18:20] LABS: ALT 14 U/L (9-52); AST 17 U/L (14-36); Albumin 4.1 g/dL (3.5-5.0); Alkaline Phosphatase 40 U/L (38-126); Amorphous Sediment,Urine Rare /hpf; Anion Gap 7 mmol/L; Appearance,Urine Cloudy (Clear); Bacteria,Urine Rare /hpf; Bilirubin,Urine Negative (Negative); Blood Urea Nitrogen 9 mg/dL (7-17); Blood,Urine Large (Negative); Calcium 9.7 mg/dL (8.4-10.2); Carbon Dioxide 24 mmol/L (22-30); Chloride 104 mmol/L (98-107); Color,Urine Yellow; Glucose 82 mg/dL (74-99); Glucose,Urine (UA) Negative (Negative); Ketones,Urine Negative (Negative); Leukocyte Esterase,Urine Small (Negative); Mucus,Urine Few /hpf; Nitrite,Urine Negative (Negative); PH, Urine 6.5 (5.0-8.0); Protein,Urine Trace (Negative); RBC,Urine 1 /hpf (0-5); Sodium 135 mmol/L (137-145); Specific Gravity,Urine 1.014 (1.001-1.035); Squamous Epithelial Cell,Urine 13 /hpf (0-4); Total Bilirubin 0.3 mg/dL (0.2-1.3); Total Protein 7.1 g/dL (6.3-8.2); Urobilinogen,Urine <2.0 mg/dL (<2.0); WBC,Urine 7 /hpf (0-5)
[2018-04-02 18:25] VITALS: BP 103/62; PULSE 77
[2018-04-02 18:26] LABS: Partial Thromboplastin Time 24.6 sec (22.0-30.0); Prothrombin Time 9.5 sec (9.0-12.0)
[2018-04-02] MEDS ORDERED: Rhogam IMMUNE GLOBULIN 1,500 UNIT/1 ML IM ONE (18:55)
== END 2018-04-02 19:32 | disposition home or self-care (01) ==
LOC: EC 17:08
DX: O20.0 Threatened abortion (principal); O99.331 Smoking (tobacco) complicating pregnancy, first trimester; F17.200 Nicotine dependence, unspecified, uncomplicated; Z79.899 Other long term (current) drug therapy; Z91.018 Allergy to other foods; Z3A.12 12 weeks gestation of pregnancy
CPT/HCPCS: 36415; 80053; 81001; 85025; 85610; 85730; 86850; 86870; 86880; 86900; 86901; 87086; 99284

== ENCOUNTER 2018-04-18 09:59 | Emergency (ER) | payer OTHER ==
[2018-04-18] MEDS ORDERED: SODIUM CHLORIDE 0.9% 500 ML 500 ML IV ONE (10:06)
--- NOTE | 2018-04-18 10:34 | ED ---
Female Urogenital HPI - General Chief complaint: Vaginal Bleeding Stated complaint: 14 wks preg/vaginal bleeding Time Seen by Provider: 04/18/18 10:04 Source: patient Mode of arrival: ambulatory Limitations: no limitations - History of Present Illness Initial comments: 22-year-old female , 14 weeks with last menstrual period February 03 presenting today for chief complaint of vaginal bleeding. Patient states she has been seen multiple times within the past 6-8 weeks for mild pelvic cramping and mild on and off vaginal bleeding. Ultrasound from 03/04/2018 revealed subchorionic bleed adjacent to the gestational sac. Viable intruterine HR 165bpm. 8wks 2 days at that time. Pt states that today she woke up had one gush of blood when she used the restroom, and very mild lower midline pelvic cramping. She states that she has gone to the bathroom since this and did no noticed very much or at time blood at all. She states the most was when she woke up. Remainder of ROS (-), pt denies STI hx, heavy vaginal bleeding, discharge, abdominal pain, nausea, vomiting, chest pain, shortness of breath, palpitations, pallor, cold intolerance, vaginal odors, bleeding since last visit on 03/18/18. Since pt last discharge she states she has contact her OBGYN , Dr Chris Lopez and has a scheduled appointment 04/26/2018. Remainder of ROS ( -), upon arrival pt appears well/comfortable. Pt HR elevated, she states this is normal for her remainder of VS within acceptable limits. - Related Data Home Medications Medication Instructions Recorded Confirmed Pnv No.95/Ferrous Fum/Folic AC 1 tab PO DAILY 03/04/18 04/18/18 [ Multivitamin Tablet] Allergies Allergy/AdvReac Type Severity Reaction Status Date / Time strawberry AdvReac Itching Verified 04/18/18 10:39 Review of Systems ROS Statement: Those systems with pertinent positive or pertinent negative responses have been documented in the HPI. ROS Other: All systems not noted in ROS Statement are negative. Constitutional: Denies: fever, chills, night sweats ENT: Denies: ear pain, throat pain Respiratory: Denies: cough, dyspnea, wheezes, hemoptysis, stridor Cardiovascular: Denies: chest pain, palpitations Endocrine: Denies: fatigue Gastrointestinal: Reports: as per HPI (mild lower pelvic cramping midline). Denies: abdominal pain, nausea, vomiting, diarrhea, constipation, hematemesis, melena, hematochezia Genitourinary: Reports: other (vaginal bleeding since this AM 1 episode, no current bleeding). Denies: urgency, dysuria, frequency, hematuria, discharge Musculoskeletal: Denies: back pain Skin: Denies: rash, lesions Neurological: Denies: numbness, paresthesias, confusion, abnormal gait, vertigo Past Medical History Past Medical History: No Reported History History of Any Multi-Drug Resistant Organisms: None Reported Past Surgical History: No Surgical Hx Reported Past Psychological History: Anxiety Smoking Status: Current some day smoker Past Alcohol Use History: None Reported Past Drug Use History: None Reported General Exam - General Exam Comments Initial Comments: General: The patient is awake and alert, in no distress, and does not appear acutely ill. Eye: Pupils are equal, round and reactive to light, extra-ocular movements are intact. No nystagmus. There is normal conjunctiva bilaterally. No signs of icterus. Ears, nose, mouth and throat: There are moist mucous membranes and no oral lesions. Neck: The neck is supple, there is no tenderness or JVD. Cardiovascular: There is a regular rate and rhythm. No murmur, rub or gallop is appreciated. Respiratory: Lungs are clear to auscultation, respirations are non-labored, breath sounds are equal. No wheezes, stridor, rales, or rhonchi. Gastrointestinal: [Soft, non-distended, non-tender abdomen without masses or organomegaly noted. There is no rebound or guarding present. No CVA tenderness. Bowel sounds are unremarkable.] Musculoskeletal: Normal ROM, no tenderness. Strength 5/5. Sensation intact. Pulses equal bilaterally 2+. Neurological: A&O x 3. CN II-XII intact, There are no obvious motor or sensory deficits. Coordination appears grossly intact. Speech is normal. Skin: Skin is warm and dry and no rashes or lesions are noted. Psychiatric: Cooperative, appropriate mood & affect, normal judgment. Limitations: no limitations External exam: Present: normal external exam. Absent: erythema, swelling, lesions, lacerations Speculum exam: Present: vaginal discharge, vaginal bleeding (small amount of pink blood in vault, no gross red blood). Absent: erythema, cervical discharge By manual exam: Present: normal by manual exam, uterine enlargement (consistent with ). Absent: cervical motion tenderness, adnexal tenderness, adnexal mass Expanded Female exam: Absent: vaginal laceration, tissue present in vagina, herpetic lesions, vulvar erythema, vulvar tenderness Speculum exam: Present: cervical OS closed Course Vital Signs 04/18/18 04/18/18 04/18/18 10:01 12:22 13:31 Temperature 97.9 F 97.8 F Pulse Rate 105 H 83 78 Respiratory 18 18 16 Rate Blood Pressure 112/71 99/51 121/66 O2 Sat by Pulse 99 99 98 Oximetry Medical Decision Making - Medical Decision Making HgB and VS stable. US revealed viable 15wk intrauterine , serum hcg correlated according to gestation, in addtion u/s revealed subchoronic hemorrhage vs venous pool. All findings discussed with patient. PE revealed benign abdominal exam, closed os, no bright red blood in vaginal vault there was discharge, cultures pending. Pt denies risk of STD. UA as noted above, not clean catch. Denies urinary symptoms. Pt has previous received RhoGam in past 8 weeks. At this time I feel pt is stable for discharge with f/u with patients OBGYN Dr. Chris Lopez. Pt is agreeable with plan. Case discussed in detail with , who agreed with impression and plan. Return parameters discussed in detail patient who verbalized understanding. Pt was agreeable with discharge and discharged instable condition, denied pain or any current bleeding. - Lab Data Result diagrams: 04/18/18 10:24 04/18/18 10:24 Lab Results 04/18/18 04/18/18 04/18/18 Range/Units 10:24 10:24 10:24 WBC 7.4 (4.0-11.0) k/uL RBC 4.02 (3.80-5.40) m/uL Hgb 12.4 (11.4-16.0) gm/dL Hct 35.9 (34.0-46.0) % MCV 89.2 (80.0-100.0) fL MCH 30.9 (25.0-35.0) pg MCHC 34.6 (31.0-37.0) g/dL RDW 14.7 (11.5-15.5) % Plt Count 223 (150-450) k/uL Neutrophils % 74 % Lymphocytes % 22 % Monocytes % 3 % Eosinophils % 2 % Basophils % 0 % Neutrophils # 5.4 (1.3-7.7) k/uL Lymphocytes # 1.6 (1.0-4.8) k/uL Monocytes # 0.2 (0-1.0) k/uL Eosinophils # 0.1 (0-0.7) k/uL Basophils # 0.0 (0-0.2) k/uL Sodium 138 (137-145) mmol/L Potassium 4.3 (3.5-5.1) mmol/L Chloride 108 H (98-107) mmol/L Carbon Dioxide 23 (22-30) mmol/L Anion Gap 7 mmol/L BUN 6 L (7-17) mg/dL Creatinine 0.41 L (0.52-1.04) mg/dL Est GFR (CKD-EPI)AfAm >90 (>60 ml/min/1.73 sqM) Est GFR (CKD-EPI)NonAf >90 (>60 ml/min/1.73 sqM) Glucose 86 (74-99) mg/dL Calcium 9.1 (8.4-10.2) mg/dL Total Bilirubin 0.3 (0.2-1.3) mg/dL AST 18 (14-36) U/L ALT <6 L (9-52) U/L Alkaline Phosphatase 46 (38-126) U/L Total Protein 6.6 (6.3-8.2) g/dL Albumin 3.7 (3.5-5.0) g/dL HCG, Quant 758492.0 mIU/mL Urine Color Yellow Urine Appearance Turbid H (Clear) Urine pH 7.0 (5.0-8.0) Ur Specific Holden 1.023 (1.001-1.035) Urine Protein 1+ H (Negative) Urine Glucose (UA) Negative (Negative) Urine Ketones Negative (Negative) Urine Blood Moderate H (Negative) Urine Nitrite Negative (Negative) Urine Bilirubin Negative (Negative) Urine Urobilinogen <2.0 (<2.0) mg/dL Ur Leukocyte Esterase Large H (Negative) Urine RBC 4 (0-5) /hpf Urine WBC 53 H (0-5) /hpf Ur Squamous Epith Cells 58 H (0-4) /hpf Urine Bacteria Rare H (None) /hpf Urine Mucus Many H (None) /hpf Trichomonas Ag (Rapid) (Negative) 04/18/18 Range/Units 10:30 WBC (4.0-11.0) k/uL RBC (3.80-5.40) m/uL Hgb (11.4-16.0) gm/dL Hct (34.0-46.0) % MCV (80.0-100.0) fL MCH (25.0-35.0) pg MCHC (31.0-37.0) g/dL RDW (11.5-15.5) % Plt Count (150-450) k/uL Neutrophils % % Lymphocytes % % Monocytes % % Eosinophils % % Basophils % % Neutrophils # (1.3-7.7) k/uL Lymphocytes # (1.0-4.8) k/uL Monocytes # (0-1.0) k/uL Eosinophils # (0-0.7) k/uL Basophils # (0-0.2) k/uL Sodium (137-145) mmol/L Potassium (3.5-5.1) mmol/L Chloride (98-107) mmol/L Carbon Dioxide (22-30) mmol/L Anion Gap mmol/L BUN (7-17) mg/dL Creatinine (0.52-1.04) mg/dL Est GFR (CKD-EPI)AfAm (>60 ml/min/1.73 sqM) Est GFR (CKD-EPI)NonAf (>60 ml/min/1.73 sqM) Glucose (74-99) mg/dL Calcium (8.4-10.2) mg/dL Total Bilirubin (0.2-1.3) mg/dL AST (14-36) U/L ALT (9-52) U/L Alkaline Phosphatase (38-126) U/L Total Protein (6.3-8.2) g/dL Albumin (3.5-5.0) g/dL HCG, Quant mIU/mL Urine Color Urine Appearance (Clear) Urine pH (5.0-8.0) Ur Specific Holden (1.001-1.035) Urine Protein (Negative) Urine Glucose (UA) (Negative) Urine Ketones (Negative) Urine Blood (Negative) Urine Nitrite (Negative) Urine Bilirubin (Negative) Urine Urobilinogen (<2.0) mg/dL Ur Leukocyte Esterase (Negative) Urine RBC (0-5) /hpf Urine WBC (0-5) /hpf Ur Squamous Epith Cells (0-4) /hpf Urine Bacteria (None) /hpf Urine Mucus (None) /hpf Trichomonas Ag (Rapid) Negative (Negative) Disposition Clinical Impression: Subchorionic hemorrhage in second trimester Disposition: HOME SELF-CARE Condition: Good Instructions: Subchorionic Hemorrhage (ED) Additional Instructions: Please use medication as discussed. Please follow-up with OBGYN in next 1-2 days. Please return to emergency room if the symptoms increase or worsen or for any other concerns as discussed. Is patient prescribed a controlled substance at d/c from ED?: No Referrals: None,Stated [Primary Care Provider] - 1-2 days Chris Lopez DO [REFERRING] - 1-2 days Time of Disposition: 13:16
[2018-04-18 11:04] LABS: Basophils % (A) 0 %; Eosinophils # (A) 0.1 k/uL (0-0.7); Eosinophils % (A) 2 %; HCT 35.9 % (34.0-46.0); HGB 12.4 gm/dL (11.4-16.0); Lymphocytes # (A) 1.6 k/uL (1.0-4.8); Lymphocytes % (A) 22 %; MCH 30.9 pg (25.0-35.0); MCHC 34.6 g/dL (31.0-37.0); MCV 89.2 fL (80.0-100.0); Mean Platelet Volume 7.5; Monocytes # (A) 0.2 k/uL (0-1.0); Monocytes % (A) 3 %; Neutrophils # (A) 5.4 k/uL (1.3-7.7); Neutrophils % (A) 74 %; Platelet Count 223 k/uL (150-450); RBC 4.02 m/uL (3.80-5.40); RDW 14.7 % (11.5-15.5); WBC 7.4 k/uL (4.0-11.0)
[2018-04-18 11:12] LABS: Appearance,Urine Turbid (Clear); Bacteria,Urine Rare /hpf; Bilirubin,Urine Negative (Negative); Blood,Urine Moderate (Negative); Color,Urine Yellow; Glucose,Urine (UA) Negative (Negative); Ketones,Urine Negative (Negative); Leukocyte Esterase,Urine Large (Negative); Mucus,Urine Many /hpf; Nitrite,Urine Negative (Negative); Protein,Urine 1+ (Negative); RBC,Urine 4 /hpf (0-5); Specific Gravity,Urine 1.023 (1.001-1.035); Squamous Epithelial Cell,Urine 58 /hpf (0-4); Urobilinogen,Urine <2.0 mg/dL (<2.0); WBC,Urine 53 /hpf (0-5)
[2018-04-18 11:25] LABS: ALT <6 U/L (9-52); AST 18 U/L (14-36); Albumin 3.7 g/dL (3.5-5.0); Alkaline Phosphatase 46 U/L (38-126); Anion Gap 7 mmol/L; Blood Urea Nitrogen 6 mg/dL (7-17); Calcium 9.1 mg/dL (8.4-10.2); Carbon Dioxide 23 mmol/L (22-30); Chloride 108 mmol/L (98-107); Glucose 86 mg/dL (74-99); Potassium 4.3 mmol/L (3.5-5.1); Sodium 138 mmol/L (137-145); Total Bilirubin 0.3 mg/dL (0.2-1.3); Total Protein 6.6 g/dL (6.3-8.2)
--- NOTE | 2018-04-18 12:56 | US ---
EXAMINATION TYPE: US OB >= 14 wk fetus DATE OF EXAM: 04/18/2018 COMPARISON: US CLINICAL HISTORY: vaginal bleeding 14 wks TECHNIQUE: Transabdominal (TA) GESTATIONAL AGE / DATING Physician Established: Not yet established Dates by LMP: (14 weeks/5 days) EDC: 10/12/2018 Dates by First Scan: (15 weeks/0 days) EDC: 10/10/2018 Dates by Current Scan: (15 weeks/2 days) EDC: 10/08/2018 Beta HCG (if available): Not available SURVEY IUP: Single PLACENTA: Anterior; superior anechoic area may be venous tolentino = 2.5 x 1.0 x 0.6cm; superior to inferi or side of placental is large hypoechoic area = 4.4 x 4.1 x 1.1cm may be area of Subchorionic Hemorrhage on prior US here PREVIA: No Previa GUILLERMO: 10.0 cm normal and begins to be measured at 16 weeks or greater. CERVICAL LENGTH (transabdominal: norm > 3.0cm): 3.8 cm BIOMETRY PRESENTATION: Breech LIE: Transverse with head maternal right BPD: 2.9 cm 15 weeks / 2 days HC: 10.6 cm 15 weeks / 0 days AC: 8.7 cm 15 weeks / 0 days FL: 1.7 cm 14 weeks / 6 days ESTIMATED WEIGHT IN GRAMS: 111.07 grams ESTIMATED WEIGHT IN LBS/OZ: 0 lbs. 4 oz. WEIGHT PERCENTAGE BASED ON ESTABLISHED DATES: 64.5% HC/AC: 1.21 Normal FL/AC: 18.97 Normal HEART RATE: 148 bpm RHYTHM: Normal Single, live IUP,15 weeks/2 days, EDC: 10/08/2018; HR 148bpm; possible subchorionic bleed still noted on placental side vs. large venous tolentino. IMPRESSION: Single viable intrauterine corresponding to ultrasound age corresponding to ultrasound age 15 weeks 2 days with estimated date of delivery 10/08/2018. Probable subchorionic hemorrhage.
[2018-04-18 13:31] VITALS: BP 121/66; PULSE 78; RESP 16; TEMP 97.8
[2018-04-19 13:40] LABS: C. trachomatis,PCR Positive (Neg,Equiv); Chlamydia trachomatis Source Vagina; N. gonorrhoeae,PCR Negative (Neg,Equiv); Neisseria Source Vagina
== END 2018-04-18 13:31 | disposition home or self-care (01) ==
LOC: EC 09:59
DX: O41.8X20 Other specified disorders of amniotic fluid and membranes, second trimester, not applicable or unspecified (principal); O99.332 Smoking (tobacco) complicating pregnancy, second trimester; F17.200 Nicotine dependence, unspecified, uncomplicated; Z3A.15 15 weeks gestation of pregnancy; Z91.018 Allergy to other foods
CPT/HCPCS: 36415; 76805; 80053; 81001; 84702; 85025; 87491; 87591; 87808; 96360; 96361; 99284

== ENCOUNTER → 2018-05-27 | Outpatient (CLI) | payer OTHER ==
--- NOTE | 2018-05-30 12:02 | US ---
EXAMINATION TYPE: US OB anatomy transabd DATE OF EXAM: 05/27/2018 COMPARISON: 04/18/2018 HISTORY: 22-year-old female Z34.80 confirm dates , smoker TECHNIQUE: Transabdominal (TA) FINDINGS: EXAM MEASUREMENTS: GESTATIONAL AGE / DATING Physician Established: (20 weeks/2 days) EDC: 10/12/2018 Dates by LMP: (20 weeks/2 days) EDC: 10/12/2018 Dates by First Scan: (20 weeks/4 days) EDC: 10/10/2018 Dates by Current Scan for: (19 weeks/5 days) (measurements 4 days smaller than dates by LMP. In add ition, there has been 8 days less growth than expected from 04/18/2018). EDC: 10/16/2018 SURVEY IUP: Single PLACENTA: Anterior PREVIA: No previa but slightly low-lying measuring 3 cm away from the internal cervical os. GUILLERMO: 13.6 cm Normal CERVICAL LENGTH (transabdominal: norm > 3.0cm): 3.7 cm BIOMETRY PRESENTATION: Breech LIE: Longitudinal BPD: 4.6 cm 19 weeks / 5 days HC: 17.7 cm 20 weeks / 1 day AC: 15.0 cm 20 weeks / 2 days FL: 3.1 cm 19 weeks / 5 days ESTIMATED WEIGHT IN GRAMS: 326.9 grams ESTIMATED WEIGHT IN LBS/OZ: 0 lbs. 12 oz. WEIGHT PERCENTAGE BASED ON ESTABLISHED DATE: 30.6 % (versus 65th percentile, previously) HC/AC: 1.18 Normal FL/AC: 20.94 Normal HEART RATE: 152 bpm RHYTHM: Normal ANATOMY SEEN (within normal limits): Lateral Vent (< 1 cm) 0.7 cm Cisterna Magna (< 1.1 cm) 0.4 cm Nuchal Fold (< 0.6 cm) 0.5 cm Cerebellum (varies with age) 1.9 cm Choroid Plexus (bilateral) Midline Falx Cavus Septi Pellucidi Four Chamber Heart Outflow tracts: RVOT Stomach Situs Nose / Lips Diaphragm Kidneys (bilateral) Bladder Three Vessel Cord Longitudinal Spine Transverse Spine Arms (bilateral) Legs (bilateral) ANATOMY SUBOPTIMALLY VISUALIZED (Due to position): Outflow tracts: LVOT Cord Insert OCEANOLOGIST NOTES: Single, live IUP, 19 weeks/5 days, EDC: 10/16/2018, [id number]. IMPRESSION: 1. Single live intrauterine with estimated gestational age of 20 weeks 2 days by LMP. Curre nt ultrasound biometry is concordant but smaller now (19 weeks 5 days). 2. Measurements are 4 days smaller than dates by LMP. In addition, there has been 8 days less growth than expected from 04/18/2018. EFW percentile has moved from 65th now to the 31st percentile. Follow- up recommended. 3. Suboptimal visualization of the LVOT. Unable to exclude ventricular septal defect with overriding aorta based on this appearance. Also, suboptimal visualization of the cord insertion due to crowded s tructures. 4. Patient can return for a follow-up in approximately 3 weeks to reassess growth as well as these 2 structures. The remaining structures appear normal. 5. Anterior but slightly low-lying placenta located 3 cm from the internal cervical os.
== END | disposition home or self-care (01) ==
LOC: RADUSWWP 16:25
PROVIDERS: ATTEND Obstetrics & Gynecology
DX: O44.42 Low lying placenta NOS or without hemorrhage, second trimester (principal); Z3A.20 20 weeks gestation of pregnancy
CPT/HCPCS: 76811

== ENCOUNTER 2018-10-07 06:01 | Inpatient (IN) | payer OTHER ==
[2018-10-07] MEDS ORDERED: METHYLERGONOVINE 0.2 MG/ML 1 ML AMP IM PRN (06:15)
[2018-10-07] MEDS ORDERED: OXYTOCIN 10 UNIT/ML 1 ML VIAL IM PRN (06:15)
[2018-10-07] MEDS ORDERED: CARBOPROST TROMETHAMINE 250 MCG/ML 1 ML AMP IM PRN (06:15)
[2018-10-07] MEDS ORDERED: LACTATED RINGERS 1,000 ML IV SCH (06:15)
[2018-10-07] MEDS ORDERED: TERBUTALINE 1 MG/ML VIAL SQ PRN (06:15)
[2018-10-07] MEDS ORDERED: LIDOCAINE 0.5% (PF) 5 MG/ML (50 ML SDV) SQ PRN (06:15)
[2018-10-07] MEDS ORDERED: AMPICILLIN 2,000 MG in SODIUM CHLORIDE 0.9% 100 ML IVPB ONE (06:30)
[2018-10-07 06:36] VITALS: BMI 26.9
[2018-10-07 06:48] LABS: Basophils # (A) 0.1 k/uL (0-0.2); Basophils % (A) 0 %; Eosinophils # (A) 0.2 k/uL (0-0.7); Eosinophils % (A) 1 %; HCT 31.4 % (34.0-46.0); HGB 10.2 gm/dL (11.4-16.0); Lymphocytes # (A) 2.9 k/uL (1.0-4.8); Lymphocytes % (A) 18 %; MCH 28.8 pg (25.0-35.0); MCHC 32.7 g/dL (31.0-37.0); MCV 88.2 fL (80.0-100.0); Mean Platelet Volume 8.2; Monocytes # (A) 0.8 k/uL (0-1.0); Monocytes % (A) 5 %; Neutrophils # (A) 11.6 k/uL (1.3-7.7); Neutrophils % (A) 73 %; Platelet Count 343 k/uL (150-450); Poikilocytosis Slight; RBC 3.56 m/uL (3.80-5.40); RDW 14.8 % (11.5-15.5); WBC 15.9 k/uL (3.8-10.6)
[2018-10-07] MEDS ORDERED: fentaNYL (PF) 50 MCG/ML 5 ML AMP ONE (06:55)
[2018-10-07] MEDS ORDERED: ROPIVACAINE 5MG/ML 20ML VIAL ONE (06:55)
[2018-10-07] MEDS ORDERED: SODIUM CHLORIDE 0.9% 100 ML BAG ONE (06:55)
--- NOTE | 2018-10-07 07:19 | P.HPOB ---
History of Present Illness H&P Date: 10/07/18 Chief Complaint: Intrauterine at term: Active labor Latricia is 20 10 at 39 weeks gestation based on her her statement. She relates that she was seen Dr. Lopez in [facility], but upon receiving her records does not appear she is seen him since July 21. She relates that she does not remember the last time she saw them. In discussing with her the Precis course, she relates that she had some bleeding in the early part of the for which she received Endy gamma but did not receive her second dose of Rho lorie, she says that she did do her 1 hour Glucola screen but I do not see the result in the chart. She did have positive chlamydia screening at the beginning of the , she relates that she was treated with antibiotics b ut did not get rescreened for test of cure. We'll notify needs of same. Upon presentation to the hospital, she arrived from EMS trino every 3-4 minutes dilated to 5-6 cm. Upon my evaluation she is now dilated to 7 cm 80% effaced and -2 station. she had spontaneous rupture of membranes with thick meconium noted and both leads and anesthesia will be notified of same. Currently there is a category 1 tracing. I did see approximate 2 variable decelerations earlier on the strip that took it from a baseline of approximately 1:30 down to 90s but did have rapid return to baseline but in visualizing the monitor strip at this time is category 1 tracing. She is receiving epidural at this time. We'll try and get her comfortable and as we have no group B strep status are trying to get antibiotics in 2 protect against group B strep. Drug screen and social worker health services consult avulse been requested due to lack of care On physical exam vital signs are currently stable and afebrile. Heart regular, lungs clear, extremities without pain. Gravid uterus is noted. It is noted that she has multiple dental caries and is missing multiple teeth. Assessment intrauterine at term. Plan epidural for analgesia and expect spontaneous vaginal delivery. With thick meconium noted both pediatrics and anesthesia are notified for same. Past Medical History Past Medical History: No Reported History History of Any Multi-Drug Resistant Organisms: None Reported Past Surgical History: No Surgical Hx Reported Past Anesthesia/Blood Transfusion Reactions: Unable to Obtain Past Psychological History: Anxiety Smoking Status: Current every day smoker Past Alcohol Use History: None Reported Past Drug Use History: None Reported - Past Family History Father Family Medical History: No Reported History Medications and Allergies Home Medications Medication Instructions Recorded Confirmed Type No Known Home Medications 10/07/18 10/07/18 History Allergies Allergy/AdvReac Type Severity Reaction Status Date / Time strawberry AdvReac Itching Verified 10/07/18 06:08 Exam Osteopathic Statement: *. No significant issues noted on an osteopathic structural exam other than those noted in the History and Physical/Consult. Intake and Output 10/06/18 10/07/18 10/07/18 22:59 06:59 14:59 Other: Weight 66.905 kg Results Result Diagrams: 10/07/18 06:34 Abnormal Lab Results - Last 24 Hours (Table) 10/07/18 Range/Units 06:34 WBC 15.9 H (3.8-10.6) k/uL RBC 3.56 L (3.80-5.40) m/uL Hgb 10.2 L (11.4-16.0) gm/dL Hct 31.4 L (34.0-46.0) % Neutrophils # 11.6 H (1.3-7.7) k/uL
[2018-10-07] MEDS ORDERED: ROPIVACAINE 100 MG, fentaNYL (PF) 200 MCG in SODIUM CHLORIDE 0.9% 76 ML EPIDURAL ONE (07:38)
[2018-10-07 08:29] LABS: Amphetamine Screen,Urine Not Detected (NotDetected); Barbiturate Screen,Urine Not Detected (NotDetected); Benzodiazepines Screen,Urine Not Detected (NotDetected); Cocaine Screen,Urine Not Detected (NotDetected); Methadone Screen, Urine Not Detected (NotDetected); Opiate Screen,Urine Not Detected (NotDetected); Oxycodone Screen, Urine Not Detected (NotDetected); Phencyclidine Screen,Urine Not Detected (NotDetected); Tricyclic Antidepressant,Urine Not Detected (NotDetected); Urn Cannabinoid Scrn Not Detected (NotDetected)
[2018-10-07] MEDS ORDERED: Rhogam IMMUNE GLOBULIN 1,500 UNIT/1 ML IM ONE (10:23)
[2018-10-07] MEDS ORDERED: WITCH HAZEL 1 EACH MED..PAD TOPICAL PRN (10:23)
[2018-10-07] MEDS ORDERED: ZOLPIDEM 5 MG TAB PO PRN (10:23)
[2018-10-07] MEDS ORDERED: HYDROCORTISONE 2.5% RECTAL CREAM 30 GM TUBE RECTAL PRN (10:23)
[2018-10-07] MEDS ORDERED: ACETAMINOPHEN TAB 325 MG TAB PO PRN (10:23)
[2018-10-07] MEDS ORDERED: OXYTOCIN 20 UNITS/1000 ML NS 1,000 ML IV SCH (10:23)
[2018-10-07] MEDS ORDERED: LANOLIN CREAM 5 GM TUBE TOPICAL PRN (10:23)
[2018-10-07] MEDS ORDERED: SIMETHICONE 80 MG CHEWABLE PO PRN (10:23)
[2018-10-07] MEDS ORDERED: BISACODYL 10 MG SUPP RECTAL PRN (10:23)
[2018-10-07] MEDS ORDERED: BENZOCAINE/MENTHOL SPRAY 1 GM/SPRAY AEROSOL TOPICAL PRN (10:23)
[2018-10-07] MEDS ORDERED: diphenhydrAMINE 50 MG/ML 1 ML VIAL IVP PRN (10:23)
[2018-10-07] MEDS ORDERED: diphenhydrAMINE 25 MG CAP PO PRN (10:23)
[2018-10-07] MEDS ORDERED: AMPICILLIN 1,000 MG in SODIUM CHLORIDE 0.9% 50 ML IVPB SCH (10:30)
--- NOTE | 2018-10-07 12:47 | P.PROBDLV ---
Vaginal Delivery Note - . Vaginal Delivery Note: Normal spontaneous vaginal delivery viable female Apgars 9 and 9 delivery time is 0910 hours. Please see dictated H&P per Dr. Ackerman on this patient's admission. In brief summary this is a 23-year-old 2 para 1 female 39-2/7 weeks by stated estimated date of confinement who presented to [facility] labor and delivery with complaints of regular painful contractions transported by EMS. Patient's care is per Dr. Lopez but apparently she is not seen him in many months and has not been compliant with care. On admission patient's 5- 6 cm dilated and has a category 1 heart tones. Spontaneous rupture membranes occurs for thick meconium-stained fluid. Patient does have some small variable decelerations but otherwise category 1 heart tones at this time as well. Patient is given IV antibiotics for unknown group B strep status. Patient apparently is Rh- but states she did not go for her RhoGAM. Patient does get an epidural for pain control at approximately 7 cm. Labor progresses quickly and she does get to complete. Patient pushes just a few times pushes the head to the perineum. Posterior perineum is supported we have controlled delivery of the infant's head over the intact perineum. There is a nuchal cord 1 which is reduced. Mouth and nares are bulb suctioned. With gentle downward traction we then have delivery anterior posterior shoulder and rest this infant's body. The nurse instrument maker is present for delivery. Infant has spontaneous respirations and good cry. After delivery of the the umbilical cord is doubly clamped and cut appears to be trivascular. The placenta is spontaneously delivered intact. It appears meconium-stained. Inspection of perineum shows no lacerations and no repair. Infant and mother are stable delivery room.
[2018-10-07] MEDS: IBUPROFEN 600 MG TAB PO PRN ×2 (13:22→21:44)
[2018-10-07] MEDS: SENNOSIDES-DOCUSATE SODIUM 1 EACH TAB PO SCH (20:06)
[2018-10-08 05:46] LABS: Basophils % (A) 0 %; Eosinophils # (A) 0.2 k/uL (0-0.7); Eosinophils % (A) 2 %; HCT 28.3 % (34.0-46.0); HGB 9.4 gm/dL (11.4-16.0); Lymphocytes # (A) 2.8 k/uL (1.0-4.8); Lymphocytes % (A) 22 %; MCHC 33.4 g/dL (31.0-37.0); Mean Platelet Volume 8.3; Monocytes # (A) 0.5 k/uL (0-1.0); Monocytes % (A) 4 %; Neutrophils # (A) 8.7 k/uL (1.3-7.7); Neutrophils % (A) 70 %; Platelet Count 325 k/uL (150-450); Poikilocytosis Slight; RBC 3.25 m/uL (3.80-5.40); RDW 14.4 % (11.5-15.5); WBC 12.6 k/uL (3.8-10.6)
--- NOTE | 2018-10-08 07:19 | P.PNOBGVD ---
Subjective - Subjective Patient reports: Reports appetite normal, Reports voiding normally, Reports pain well controlled, Reports ambulating normally : doing well Objective - Latest Vital Signs Latest vital signs: Vital Signs Temp Pulse Resp BP Pulse Ox 10/07/18 23:27 97.5 F L 79 16 124/71 10/07/18 20:00 98 F 84 16 131/67 98 10/07/18 15:15 98.3 F 85 18 119/75 10/07/18 11:15 97.9 F 86 18 124/60 10/07/18 10:45 93 18 119/60 10/07/18 10:15 97.3 F L 96 18 113/64 10/07/18 10:00 96 18 108/62 10/07/18 09:45 100 18 101/68 10/07/18 09:30 106 H 18 123/59 10/07/18 09:15 97.9 F 105 H 18 128/59 Intake and Output 10/07/18 10/08/18 10/08/18 22:59 06:59 14:59 Other: # Voids 2 - Exam Lungs: bilateral: normal Chest: Normal S1, Normal S2 Extremities: Present: normal Abdomen: Present: normal appearance, soft Uterus: Present: normal, firm - Labs Labs: Abnormal Lab Results - Last 24 Hours (Table) 10/08/18 Range/Units 05:31 WBC 12.6 H (3.8-10.6) k/uL RBC 3.25 L (3.80-5.40) m/uL Hgb 9.4 L (11.4-16.0) gm/dL Hct 28.3 L (34.0-46.0) % Neutrophils # 8.7 H (1.3-7.7) k/uL Assessment and Plan Assessment: day #1. Patient is resting without complaints. Vital signs are stable she's afebrile. Uterus is firm nontender she's having normal lochia. I impression this is a normal course. Plan is to continue routine care discharge home tomorrow. (1) Normal labor and delivery Current Visit: Yes Status: Acute Code(s): O80 - ENCOUNTER FOR FULL-TERM UNCOMPLICATED DELIVERY SNOMED Code(s): 52658637
[2018-10-08] MEDS: SENNOSIDES-DOCUSATE SODIUM 1 EACH TAB PO SCH (10:09)
[2018-10-08] MEDS: IBUPROFEN 600 MG TAB PO PRN ×2 (10:21→17:08)
--- NOTE | 2018-10-09 07:14 | P.PNOBGVD ---
Subjective - Subjective Patient reports: Reports appetite normal, Reports voiding normally, Reports pain well controlled, Reports ambulating normally : doing well, in NICU Objective - Latest Vital Signs Latest vital signs: Vital Signs Temp Pulse Resp BP Pulse Ox 10/08/18 23:48 98.1 F 72 16 110/66 10/08/18 17:00 98.3 F 82 18 112/72 99 10/08/18 08:00 98.4 F 93 18 114/76 97 Intake and Output 10/08/18 10/09/18 10/09/18 22:59 06:59 14:59 Other: # Voids 1 - Exam Lungs: bilateral: normal Chest: Normal S1, Normal S2 Extremities: Present: normal Abdomen: Present: normal appearance, soft Uterus: Present: normal, firm Assessment and Plan Assessment: day #2. Patient is resting without new complaints. Vital signs are stable and she is afebrile. Uterus is firm nontender and she is having normal lochia. Plan today is to continue routine care discharge home later today. (1) Normal labor and delivery Current Visit: Yes Status: Acute Code(s): O80 - ENCOUNTER FOR FULL-TERM UNCOMPLICATED DELIVERY SNOMED Code(s): 76933529
--- NOTE | 2018-10-09 07:19 | P.DS ---
Providers Date of admission: 10/07/18 06:15 Expected date of discharge: 10/09/18 Attending physician: Krunal Ackerman Primary care physician: Stated None - Discharge Diagnosis(es) (1) Normal labor and delivery Current Visit: Yes Status: Acute Hospital Course: Please see dictated H&P per Dr. Ackerman on this patient's admission. Brief summary this is a 23-year-old 2 para 1 female whose had limited care with Dr. Lopez who presents to this hospital with complaints of contractions and found to be in active labor. Patient did have meconium-stained fluid. Patient quickly went on to have a vaginal delivery viable female infant. Please see dictated delivery note. day #2 patient's felt be stable for discharge home follow up with Dr. Lopez in 6 weeks. Procedures: Normal spontaneous vaginal delivery Patient Condition at Discharge: Good Plan - Discharge Summary New Discharge Prescriptions: New Ibuprofen [Motrin] 600 mg PO Q6HR PRN #40 tab PRN Reason: Mild Pain Or Fever >= 100.5 Discharge Medication List Ibuprofen [Motrin] 600 mg PO Q6HR PRN #40 tab 10/09/18 [Rx] Follow up Appointment(s)/Referral(s): Chris Lopez DO [REFERRING] - 6 Weeks Patient Instructions/Handouts: Vaginal Delivery (DC) Activity/Diet/Wound Care/Special Instructions: No intercourse or anything per vagina for 6 weeks. Please call if any fever, chills, excessive vaginal bleeding, and/or abdominal pain. Contact your respiratory scientist (Dr. Lopez) tomorrow please for a follow-up visit in 6 weeks. Discharge Disposition: HOME SELF-CARE
[2018-10-09 08:43] VITALS: BP 110/78; PULSE 87; RESP 18; TEMP 98.4
[2018-10-09] MEDS: SENNOSIDES-DOCUSATE SODIUM 1 EACH TAB PO SCH (08:46)
== END 2018-10-09 10:26 | disposition home or self-care (01) | DRG 806 ==
LOC: FBPOP 06:01 → 4FBP 06:15
PROVIDERS: ADMIT Obstetrics & Gynecology; ATTEND Obstetrics & Gynecology
PROC: 10E0XZZ Delivery of Products of Conception, External Approach (ICD-10-PCS; principal; 2018-10-07)
PROC: 00HU33Z Insertion of Infusion Device into Spinal Canal, Percutaneous Approach (ICD-10-PCS; 2018-10-07)
PROC: 3E0R3BZ Introduction of Anesthetic Agent into Spinal Canal, Percutaneous Approach (ICD-10-PCS; 2018-10-07)
PROC: 3E0234Z Introduction of Serum, Toxoid and Vaccine into Muscle, Percutaneous Approach (ICD-10-PCS; 2018-10-07)
DX: O77.0 Labor and delivery complicated by meconium in amniotic fluid (principal); O98.811 Other maternal infectious and parasitic diseases complicating pregnancy, first trimester; Z37.0 Single live birth; O76 Abnormality in fetal heart rate and rhythm complicating labor and delivery; O69.81X0 Labor and delivery complicated by cord around neck, without compression, not applicable or unspecified; O99.334 Smoking (tobacco) complicating childbirth; F17.200 Nicotine dependence, unspecified, uncomplicated; O46.90 Antepartum hemorrhage, unspecified, unspecified trimester; O26.893 Other specified pregnancy related conditions, third trimester; Z67.41 Type O blood, Rh negative; Z3A.39 39 weeks gestation of pregnancy; Z91.19 Patient's noncompliance with other medical treatment and regimen; Z91.018 Allergy to other foods; Z86.59 Personal history of other mental and behavioral disorders
CPT/HCPCS: 59025; 80306; 84112; 85025; 85461; 86850; 86900; 86901; 88307; 99213

== ENCOUNTER 2021-07-16 11:34 | Emergency (ER) | payer OTHER ==
[2021-07-16 11:56] VITALS: RESP 18; TEMP 98.8
--- NOTE | 2021-07-16 12:22 | ED ---
General Adult HPI - General Chief complaint: Extremity Injury, Upper Stated complaint: Shoulder/leg pain Time Seen by Provider: 07/16/21 12:08 Source: patient, family, RN notes reviewed, old records reviewed Mode of arrival: ambulatory Limitations: no limitations - History of Present Illness Initial comments: 25-year-old female with right knee injury and left shoulder injury. Patient states while at work she had bumped her right knee into a cart this occurred several times. Additionally while lifting an object she injured her left shoulder. This occurred yesterday. Patient is otherwise healthy no chronic medical conditions. Denies current . - Related Data Previous Rx's Medication Instructions Recorded Ibuprofen [Motrin] 600 mg PO Q6HR PRN #40 tab 10/09/18 Allergies Allergy/AdvReac Type Severity Reaction Status Date / Time strawberry AdvReac Itching Verified 07/16/21 11:56 Review of Systems ROS Statement: Those systems with pertinent positive or pertinent negative responses have been documented in the HPI. ROS Other: All systems not noted in ROS Statement are negative. Past Medical History Past Medical History: No Reported History History of Any Multi-Drug Resistant Organisms: None Reported Past Surgical History: No Surgical Hx Reported Past Anesthesia/Blood Transfusion Reactions: Unable to Obtain Past Psychological History: Anxiety Smoking Status: Current every day smoker Past Alcohol Use History: None Reported Past Drug Use History: None Reported - Past Family History Father Family Medical History: No Reported History General Exam Limitations: no limitations General appearance: alert, in no apparent distress Head exam: Present: atraumatic, normocephalic Eye exam: Present: normal appearance, PERRL Neck exam: Present: normal inspection. Absent: tenderness, meningismus Respiratory exam: Present: normal lung sounds bilaterally. Absent: respiratory distress, wheezes Cardiovascular Exam: Present: regular rate, normal rhythm GI/Abdominal exam: Present: soft. Absent: distended, tenderness Extremities exam: Present: full ROM (Mild pain in the left shoulder with range of motion. Right knee no gross deformity, no external signs of trauma.). Absent: joint swelling Neurological exam: Present: alert, oriented X3, CN II-XII intact. Absent: motor sensory deficit Psychiatric exam: Present: normal affect, normal mood Skin exam: Present: warm, dry, intact. Absent: cyanosis, diaphoretic Course Vital Signs 07/16/21 11:52 Temperature 98.8 F Pulse Rate 74 Respiratory 18 Rate Blood Pressure 116/75 O2 Sat by Pulse 97 Oximetry Medical Decision Making - Medical Decision Making 25-year-old female with injury to the right knee and left shoulder. X-rays are obtained there is no acute fracture or dislocated joint evident on x-rays. Patient will take Tylenol Motrin for pain. She will follow-up with her primary care physician. Disposition Clinical Impression: Strain of shoulder, Knee contusion Disposition: HOME SELF-CARE Condition: Good Instructions (If sedation given, give patient instructions): Knee Pain (ED), Shoulder Sprain (ED) Is patient prescribed a controlled substance at d/c from ED?: No Referrals: None,Stated [REFERRING] - 1-2 days [place] Santos MD [STAFF PHYSICIAN] - 1-2 days Time of Disposition: 13:23
--- NOTE | 2021-07-16 13:18 | XR ---
EXAMINATION TYPE: XR knee complete RT DATE OF EXAM: 07/16/2021 CLINICAL HISTORY: pain TECHNIQUE: Three views of the right knee are obtained. COMPARISON: None. FINDINGS: There is no acute fracture/dislocation. The tri-compartment joint spaces appear within no rmal limits. The overlying soft tissue appears unremarkable. IMPRESSION: There is no acute fracture or dislocation.ICD 10 NO FRACTURE, INITIAL EVALUATION
--- NOTE | 2021-07-16 13:19 | XR ---
EXAMINATION TYPE: XR shoulder complete LT DATE OF EXAM: 07/16/2021 Comparison: None Clinical History: 25-year-old female pain after injury, repetitive movement at work. Findings: AC joint is congruent and intact. Subacromial space is preserved. No tendinous or bursal calcificatio ns. No acute fracture, subluxation, or dislocation. Visualized left hemithorax is clear Impression: No acute osseous abnormality seen.
[2021-07-16 13:32] VITALS: BP 114/78; PULSE 88
== END 2021-07-16 13:35 | disposition home or self-care (01) ==
LOC: EC 11:34
DX: S46.912A Strain of unspecified muscle, fascia and tendon at shoulder and upper arm level, left arm, initial encounter (principal); S80.01XA Contusion of right knee, initial encounter; F41.9 Anxiety disorder, unspecified; F17.200 Nicotine dependence, unspecified, uncomplicated; X50.0XXA Overexertion from strenuous movement or load, initial encounter
CPT/HCPCS: 99283

== ENCOUNTER 2021-12-01 14:07 | Emergency (ER) | payer OTHER ==
[2021-12-01 14:13] VITALS: BP 128/73; PULSE 84; RESP 15; TEMP 97.8
--- NOTE | 2021-12-01 15:33 | XR ---
EXAMINATION TYPE: XR humerus RT DATE OF EXAM: 12/01/2021 COMPARISON: None HISTORY: Pain TECHNIQUE: 2 view right humerus FINDINGS: No acute fracture or dislocation is evident. Joint spaces are preserved. Anterior fat-pad i s normal. Follow up exams can be performed 7-10 days from acute trauma for continued pain. IMPRESSION: 1. Normal 2 view right humerus.
--- NOTE | 2021-12-01 15:47 | ED ---
Upper Extremity HPI - General Chief Complaint: Extremity Injury, Upper Stated Complaint: Right Upper Arm Injury Time Seen by Provider: 12/01/21 15:38 Source: patient Mode of arrival: ambulatory Limitations: no limitations - History of Present Illness Initial Comments: Patient is a 26-year-old female who presents to the emergency department with a chief complaint of right arm pain. Patient states she was playing with her kids yesterday when she felt pain in the middle area of her right upper arm. Patient states it didn't bother her much until this morning. Patient reports mild pain over the right upper arm worsened at work while reaching for a car parts. Patient has not taken anything for pain or attempted other pain relieving remedies. - Related Data Previous Rx's Medication Instructions Recorded Ibuprofen [Motrin] 600 mg PO Q6HR PRN #40 tab 10/09/18 Allergies Allergy/AdvReac Type Severity Reaction Status Date / Time strawberry AdvReac Itching Verified 12/01/21 14:10 Review of Systems ROS Statement: Those systems with pertinent positive or pertinent negative responses have been documented in the HPI. ROS Other: All systems not noted in ROS Statement are negative. Past Medical History Past Medical History: No Reported History History of Any Multi-Drug Resistant Organisms: None Reported Past Surgical History: No Surgical Hx Reported Past Anesthesia/Blood Transfusion Reactions: Unable to Obtain Past Psychological History: Anxiety Smoking Status: Current every day smoker Past Alcohol Use History: None Reported Past Drug Use History: None Reported - Past Family History Father Family Medical History: No Reported History General Exam Limitations: no limitations Head exam: Present: atraumatic, normocephalic, normal inspection Eye exam: Present: normal appearance, PERRL, EOMI. Absent: scleral icterus, conjunctival injection, periorbital swelling Respiratory exam: Present: normal lung sounds bilaterally. Absent: respiratory distress, wheezes, rales, rhonchi, stridor Cardiovascular Exam: Present: regular rate, normal rhythm, normal heart sounds. Absent: systolic murmur, diastolic murmur, rubs, gallop, clicks Extremities exam: Present: normal inspection, full ROM. Absent: tenderness, joint swelling Neurological exam: Present: alert, oriented X3, CN II-XII intact Psychiatric exam: Present: normal affect, normal mood Course Vital Signs 12/01/21 14:10 Temperature 97.8 F Pulse Rate 84 Respiratory 15 Rate Blood Pressure 128/73 O2 Sat by Pulse 95 Oximetry Medical Decision Making - Medical Decision Making This is a 26-year-old female who presents with right arm pain. Thorough history and examination were performed. The right upper arm is normal in appearance with no tenderness to palpation. Full range of motion. Neurovascularly intact. Right humerus x-ray is negative for fracture or other abnormalities. Patient will be discharged with RICE education. She is encouraged to take anti- inflammatories for pain and follow up with the primary care provider. She verbalizes understanding and is agreeable to this plan. Dr. Alvarez is my attending. Disposition Clinical Impression: Right arm pain Disposition: HOME SELF-CARE Condition: Good Instructions (If sedation given, give patient instructions): Arm Pain (ED) Additional Instructions: Please rest, ice, and elevate the right arm which will help your arm to heal. You can use cold compress 4 times a day for 20 minutes each session. Take anti-inflammatories such as Motrin or Aleve for pain. Follow-up with primary care provider in one to 2 days. Return to the emergency department experience new, concerning, or worsening symptoms. Is patient prescribed a controlled substance at d/c from ED?: No Referrals: Irma Eden MD [Primary Care Provider] - 1-2 days Time of Disposition: 15:47
== END 2021-12-01 17:18 | disposition home or self-care (01) ==
LOC: EC 14:07
DX: M79.601 Pain in right arm (principal); F17.200 Nicotine dependence, unspecified, uncomplicated; Z91.018 Allergy to other foods